=== PATIENT | female | born 1975 | race American Indian/Alaskan Native ===

== ENCOUNTER 2016-07-07 10:33 | Emergency (ER) | payer OTHER ==
[2016-07-07 10:33] VITALS: BMI 30.9
[2016-07-07 10:44] VITALS: BP 113/71; PULSE 72; RESP 18; TEMP 97.5; O2SAT 100
--- NOTE | 2016-07-07 11:24 | C.PDOC ---
History Of Present Illness Pt c/o low back pain. States that she fell forward yesterday, but the pain had already started 2 days ago. Time Seen by Provider: 07/07/16 10:37 Chief Complaint (Nursing): Back Pain History Per: Patient Onset/Duration Of Symptoms: Days (2), Gradual Current Symptoms Are (Timing): Still Present Quality Of Discomfort: "Pain" Severity: Moderate Previous Symptoms: Back Pain Associated Symptoms: None Exacerbating Factor(s): Turning, Movement Additional History Per: Prior Records Past Medical History Reviewed: Historical Data, Nursing Documentation, Vital Signs Vital Signs: Last Vital Signs Temp 97.5 F L 07/07/16 10:36 Pulse 72 07/07/16 10:36 Resp 18 07/07/16 10:36 BP 113/71 07/07/16 10:36 Pulse Ox 100 07/07/16 11:25 - Medical History PMH: Back Problems, Fractures (Rt ankle), Kidney Stones Other Surgeries: Tubal ligation. Ovarian cyst and fibroid removal. - [facility] Procedures CONTR CEREBR ARTERIOGRAM (01/24/04) TETANUS TOXOID ADMINIST (12/06/12) Family History: States: Unknown Family Hx - Social History Hx Tobacco Use: No Hx Alcohol Use: No Hx Substance Use: No - Immunization History Hx Tetanus Toxoid Vaccination: Yes (12/06/2012) Hx Influenza Vaccination: No Hx Pneumococcal Vaccination: No Review Of Systems Except As Marked, All Systems Reviewed And Found Negative. Constitutional: Negative for: Fever, Weakness Cardiovascular: Negative for: Chest Pain Respiratory: Negative for: Shortness of Breath Gastrointestinal: Negative for: Vomiting, Abdominal Pain Genitourinary: Positive for: Vaginal Bleeding (Pt is currently having her regular menstrual period.). Negative for: Dysuria Musculoskeletal: Negative for: Neck Pain, Leg Pain Skin: Negative for: Rash Neurological: Negative for: Weakness, Numbness, Seizures, Altered Mental Status Physical Exam - Physical Exam Appears: Non-toxic, No Acute Distress Skin: Normal Color, Warm, Dry, No Rash Head: Atraumatic, Normacephalic Eye(s): bilateral: PERRL, EOMI Neck: Normal ROM, Supple Cardiovascular: Rhythm Regular Respiratory: Normal Breath Sounds, No Accessory Muscle Use Gastrointestinal/Abdominal: Soft, No Tenderness Back: No CVA Tenderness, Paraspinal Tenderness (lumbar) Extremity: Normal ROM, No Pedal Edema, No Calf Tenderness Neurological/Psych: Oriented x3, Normal Motor, Normal Sensation ED Course And Treatment O2 Sat by Pulse Oximetry: 100 Pulse Ox Interpretation: Normal Reassessment Condition: Improved Disposition Counseled Patient/Family Regarding: Diagnosis, Need For Followup, Rx Given - Disposition Referrals: Wagner Chua MD [Staff Provider] - Disposition: HOME/ ROUTINE Disposition Time: 12:22 Condition: IMPROVED Additional Instructions: Follow up with your doctor. Return to the ER if you develop weakness, numbness, fever, abdominal pain, worsening of symptoms or if you have any other concerns. Prescriptions: Cyclobenzaprine [Cyclobenzaprine HCl] 10 mg PO TID PRN #15 tab PRN Reason: Muscle Spasm Naproxen [Naprosyn] 1 tab PO BID PRN #20 tab PRN Reason: Pain Instructions: Acute Low Back Pain (ED) - Clinical Impression Clinical Impression: Low back pain
== END 2016-07-07 12:31 | disposition home or self-care (01) ==
LOC: C.ER 10:33
DX: M54.5 Low back pain (principal)
CPT/HCPCS: 96372; 99283; J1885

== ENCOUNTER 2016-08-14 11:25 | Emergency (ER) | payer OTHER ==
[2016-08-14 11:25] VITALS: BMI 30.9
[2016-08-14 11:37] VITALS: BP 135/83; PULSE 90; RESP 20; TEMP 98.2; O2SAT 100
[2016-08-14 13:33] LABS: RBC URINE < 1 /hpf (0-3); URINE BACTERIA RARE (<OCC); URINE BILIRUBIN NEGATIVE (NEGATIVE); URINE BLOOD NEGATIVE (NEGATIVE); URINE COLOR Yellow (YELLOW); URINE GLUCOSE (UA) NORMAL (Normal); URINE KETONE NEGATIVE (NEGATIVE); URINE LEUKOCYTE ESTERASE TRACE Leu/uL (Negative); URINE PROTEIN NEGATIVE (NEGATIVE); URINE UROBILINOGEN NORMAL mg/dL (0.2-1.0)
[2016-08-14 13:35] LABS: WBC URINE 6 /hpf (0-5)
--- NOTE | 2016-08-14 14:13 | C.PDOC ---
History Of Present Illness 41 y/o female presents to the ED with complaints of left lower back pain radiating down left leg with associated urinary frequency. Patient was seen status post fall 2 weeks ago in ED, no XRay done at the time. He has been taking naproxen and flexeril without relief from pain. Denies weakness, numbness , incontinence or any other complaints. Time Seen by Provider: 08/14/16 12:43 Chief Complaint (Nursing): Back Pain History Per: Patient History/Exam Limitations: no limitations Onset/Duration Of Symptoms: Days Current Symptoms Are (Timing): Still Present Quality Of Discomfort: "Pain" Severity: Moderate Associated Symptoms: None Recent travel outside of the [place]: No Past Medical History Reviewed: Historical Data, Nursing Documentation, Vital Signs Vital Signs: Last Vital Signs Temp 98.2 F 08/14/16 11:36 Pulse 90 08/14/16 11:36 Resp 20 08/14/16 11:36 BP 135/83 08/14/16 11:36 Pulse Ox 100 08/14/16 19:07 - Medical History PMH: Back Problems, Fractures (Rt ankle), Kidney Stones, Chronic Kidney Disease - [facility] Procedures CONTR CEREBR ARTERIOGRAM (01/24/04) TETANUS TOXOID ADMINIST (12/06/12) Family History: States: Unknown Family Hx - Social History Hx Tobacco Use: No Hx Alcohol Use: No Hx Substance Use: No - Immunization History Hx Tetanus Toxoid Vaccination: Yes (12/06/2012) Hx Influenza Vaccination: Yes Hx Pneumococcal Vaccination: No Review Of Systems Constitutional: Negative for: Fever, Chills Cardiovascular: Negative for: Chest Pain Respiratory: Negative for: Shortness of Breath Gastrointestinal: Negative for: Vomiting, Abdominal Pain, Diarrhea Genitourinary: Positive for: Frequency. Negative for: Dysuria, Incontinence Musculoskeletal: Positive for: Back Pain (radiating down left leg) Skin: Negative for: Rash Neurological: Negative for: Weakness, Numbness Physical Exam - Physical Exam Appears: Non-toxic, No Acute Distress Skin: Warm, Dry, No Rash Head: Atraumatic, Normacephalic Eye(s): bilateral: Normal Inspection Nose: Normal Oral Mucosa: Moist Neck: Normal, Normal ROM, Supple Chest: Symmetrical Cardiovascular: Rhythm Regular, No Murmur Respiratory: Normal Breath Sounds, No Rales, No Rhonchi, No Wheezing Gastrointestinal/Abdominal: Normal Exam, Soft, No Tenderness Back: No Vertebral Tenderness, No Muscle Spasm, Paraspinal Tenderness (lumbar) Extremity: Bilateral: Atraumatic, Hips Non-Tender, Normal Color And Temperature , Normal ROM Neurological/Psych: Oriented x3, Normal Speech, Normal Motor, Normal Sensation ED Course And Treatment O2 Sat by Pulse Oximetry: 100 (room air) Pulse Ox Interpretation: Normal Medical Decision Making Medical Decision Making: Prior records reviewed, patient was seen 07/07/16 for back pain and treated with naproxen, no xrays performed XR lumbar spine negative for fracture or malalignment UA normal. Patient reevaluated and remained well in no acute distress. Discussed results with patient and she is asking for stronger pain meds. Will give new Rx and have patient follow up with her PCP. Work excuse given. Disposition Counseled Patient/Family Regarding: Diagnosis, Need For Followup, Rx Given - Disposition Disposition: HOME/ ROUTINE Disposition Time: 14:11 Condition: GOOD Additional Instructions: Follow up with your primary medical doctor or clinic in 2-5 days for further evaluation. Take medications as prescribed. Return to the emergency department at any time if symptoms persist or worsen. Prescriptions: Methocarbamol [Robaxin] 750 mg PO DAILY #14 tab traMADol [Ultram] 50 mg PO Q8 #15 tab Instructions: Sciatica (ED) Forms: Work Excuse - POA Present On Arrival: None - Clinical Impression Clinical Impression: Sciatica - PA / AUTOMOTIVE ARTIST / Resident Statement MD/DO has reviewed & agrees with the documentation as recorded. - Scribe Statement The provider has reviewed the documentation as recorded by the Alexa Blanchard All medical record entries made by the Alexa were at my direction and personally dictated by me. I have reviewed the chart and agree that the record accurately reflects my personal performance of the history, physical exam, medical decision making, and the department course for this patient. I have also personally directed, reviewed, and agree with the discharge instructions and disposition.
--- NOTE | 2016-08-14 15:08 | RAD ---
PROCEDURE: Radiographs of the Lumbar Spine. HISTORY: pain to low back for 2 weeks, s.p fall COMPARISON: No prior. FINDINGS: BONES: Three views of the lumbar spine were performed. No malalignment is seen. No compression fracture is noted. No lytic process is seen. Pedicles are intact. Mild degenerative facet changes are noted in the lower lumbar spine. Minimal endplate changes are seen at the L2-3 level. No presacral masses are seen. Coccyx is intact. DISC SPACES: No significant disc space narrowing. OTHER FINDINGS: Visualized sacroiliac joints and hips are unremarkable. IMPRESSION: No evidence of fracture or malalignment.
== END 2016-08-14 14:39 | disposition home or self-care (01) ==
LOC: C.ER 11:25
DX: M54.30 Sciatica, unspecified side (principal)

== ENCOUNTER 2017-02-20 03:27 | Observation (INO) | payer OTHER ==
[2017-02-20 03:27] VITALS: BMI 30.9
--- NOTE | 2017-02-20 03:46 | C.PDOC ---
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 Patient states she took Tylenol with no relief and has not been able to sleep. Denies diarrhea or fever. Time Seen by Provider: 02/20/17 03:45 Chief Complaint (Nursing): Abdominal Pain History Per: Patient History/Exam Limitations: no limitations Onset/Duration Of Symptoms: Hrs Current Symptoms Are (Timing): Still Present Severity: Moderate Pain Scale Rating Of: 5 Location Of Pain/Discomfort: Other (Right flank pain) Radiation Of Pain To:: Back, Other (Groin ) Quality Of Discomfort: Sharp (Stabbing) Associated Symptoms: Nausea, Vomiting. denies: Fever, Diarrhea Exacerbating Factors: None Alleviating Factors: None Last Bowel Movement: Yesterday Recent travel outside of the [place]: No Additional History Per: Family Abnormal Vaginal Bleeding: No Past Medical History Vital Signs: Last Vital Signs Temp 97.5 F L 02/20/17 05:44 Pulse 68 02/20/17 05:44 Resp 18 02/20/17 05:44 BP 107/75 02/20/17 05:44 Pulse Ox 99 02/20/17 05:44 - Medical History PMH: Back Problems, Fractures (Rt ankle), Kidney Stones, Chronic Kidney Disease - [facility] Procedures CONTR CEREBR ARTERIOGRAM (01/24/04) TETANUS TOXOID ADMINIST (12/06/12) Family History: States: No Known Family Hx - Social History Hx Tobacco Use: No Hx Alcohol Use: No Hx Substance Use: No - Immunization History Hx Tetanus Toxoid Vaccination: No (12/06/2012) Hx Influenza Vaccination: No Hx Pneumococcal Vaccination: No Review Of Systems Constitutional: Negative for: Fever, Chills Cardiovascular: Negative for: Chest Pain Respiratory: Negative for: Shortness of Breath Gastrointestinal: Positive for: Nausea, Vomiting. Negative for: Diarrhea Genitourinary: Negative for: Dysuria Musculoskeletal: Positive for: Other (Right flank pain ) Skin: Negative for: Rash Neurological: Negative for: Weakness Psych: Negative for: Anxiety Physical Exam - Physical Exam Appears: Non-toxic, Other (Awake and alert) Skin: Warm, Dry Head: Normacephalic Eye(s): bilateral: Normal Inspection Oral Mucosa: Moist Neck: Supple Chest: Symmetrical, No Tenderness Cardiovascular: Rhythm Regular Respiratory: No Rales, No Rhonchi, No Wheezing Gastrointestinal/Abdominal: Soft, Tenderness (RLQ ), No Guarding, No Rebound Back: CVA Tenderness (Right) Extremity: Normal ROM Extremity: Bilateral: Atraumatic Pulses: Left Dorsalis Pedis: Normal, Right Dorsalis Pedis: Normal Neurological/Psych: Oriented x3 Gait: Steady ED Course And Treatment - Laboratory Results Result Diagrams: 02/20/17 04:05 02/20/17 04:05 O2 Sat by Pulse Oximetry: 100 (Room air) Pulse Ox Interpretation: Normal Progress Note: Administered Zofran Inj and Morphine. Ordered blood work and urinalysis. Disposition Discussed With Dr.: Wagner Chua Comment: accepted the pt on his service and took over the care at 5:55 AM Counseled Patient/Family Regarding: Studies Performed, Diagnosis - Disposition Disposition: HOSPITALIZED Disposition Time: 03:45 Condition: FAIR Forms: [facility] ([place]) - Clinical Impression Clinical Impression: Abdominal pain - Scribe Statement The provider has reviewed the documentation as recorded by the Scribe Shirley Estrella All medical record entries made by the Scribe were at my direction and personally dictated by me. I have reviewed the chart and agree that the record accurately reflects my personal performance of the history, physical exam, medical decision making, and the department course for this patient. I have also personally directed, reviewed, and agree with the discharge instructions and disposition. Decision To Admit - Pt Status Changed To: Hospital Disposition Of: Inpatient - Admit Certification Admit to Inpatient:: After my assessment, the patient will require hospitalization for at least two midnights. This is because of the severity of symptoms shown, intensity of services needed, and/or the medical risk in this patient being treated as an outpatient. - InPatient: Physician Admission Certification:: After my assessment, the patient will require hospitalization for at least two midnights. This is because of the severity of symptoms shown, intensity of services needed, and/or the medical risk in this patient being treated as an outpatient. - . Bed Request Type: Regular Admitting Physician: Wagner Chua Patient Diagnosis: Renal colic on right side
[2017-02-20 04:05] LABS: HCG,QUALITATIVE URINE NEGATIVE (NEGATIVE); SQUAMOUS EPITHIAL < 1 /hpf (0-5); URINE BACTERIA OCC (<OCC); URINE BILIRUBIN NEGATIVE (NEGATIVE); URINE BLOOD 3+ (NEGATIVE); URINE CLARITY Clear (Clear); URINE COLOR Straw (YELLOW); URINE GLUCOSE (UA) NORMAL (Normal); URINE LEUKOCYTE ESTERASE NEG Leu/uL (Negative); URINE NITRATE NEGATIVE (NEGATIVE); URINE PROTEIN NEGATIVE (NEGATIVE); URINE UROBILINOGEN NORMAL mg/dL (0.2-1.0)
[2017-02-20 04:10] LABS: BASO % 0.5 % (0.0-2.0); EOS # 0.2 K/uL (0.0-0.7); EOS % 3.5 % (0.0-4.0); HEMOGLOBIN 11.8 g/dL (11.0-16.0); LYMPH # 2.3 K/uL (1.0-4.3); LYMPH % 34.2 % (20.0-40.0); MEAN CELL VOLUME 76.2 fL (81.0-99.0); MEAN CORPUSCULAR HEMOGLOBIN 25.6 pg (27.0-31.0); MEAN CORPUSCULAR HGB CONC 33.6 g/dL (33.0-37.0); MEAN PLATELET VOLUME 8.4 fL (7.2-11.7); MONO # 0.6 K/uL (0.0-0.8); MONO % 9.2 % (0.0-10.0); NEUT # 3.6 K/uL (1.8-7.0); NEUT % 52.6 % (50.0-75.0); RBC 4.6 Mil/uL (3.80-5.20); RED CELL DISTRIBUTION WIDTH 15.9 % (11.5-14.5); WHITE BLOOD COUNT 6.9 K/uL (4.8-10.8)
[2017-02-20 04:44] LABS: ALB/GLOB RATIO 1.1 (1.0-2.1); ALBUMIN 3.7 g/dL (3.5-5.0); ALT/SGPT 26 U/L (9-52); AST/SGOT 20 U/L (14-36); BLOOD UREA NITROGEN 8 mg/dL (7-17); CALCIUM 8.4 mg/dl (8.6-10.4); GFR AFRICAN-AMERICAN > 60; GFR NON-AFRICAN AMERICAN > 60; LIPASE 1373 U/L (23-300)
--- NOTE | 2017-02-20 05:24 | CT ---
EXAM: CT Abdomen and Pelvis Without Intravenous Contrast EXAM DATE/TIME: 02/20/2017 4:07 AM CLINICAL HISTORY: 41 years old, female; Pain; Abdominal pain; Flank; Right lower quadrant (rlq); Patient HX: 02-05-19; Additional info: R flank pain, HX of kidney stones TECHNIQUE: Axial computed tomography images of the abdomen and pelvis without intravenous contrast. All CT scans at this facility use one or more dose reduction techniques, viz.: automated exposure control; ma/kV adjustment per patient size (including targeted exams where dose is matched to indication; i.e. head); or iterative reconstruction technique. Coronal and sagittal reformatted images were created and reviewed. COMPARISON: Prior CT abdomen and pelvis of 2014-02-05 FINDINGS: LOWER THORAX: Patchy groundglass densities in the posterior lung bases bilaterally, most likely representing dependent atelectasis. ABDOMEN: LIVER: No acute abnormality of the liver identified. GALLBLADDER AND BILE DUCTS: No CT evidence of acute cholecystitis. No evidence of significant biliary ductal dilatation. PANCREAS: No CT evidence of acute pancreatitis. SPLEEN: No acute abnormality of the spleen identified. ADRENALS: No acute abnormality of the adrenal glands identified. KIDNEYS AND URETERS: Moderate to severe right hydroureteronephrosis. This appears to be secondary to a 5 mm obstructing stone in the right distal ureter, image 142/series 3. Tiny, nonobstructing left renal stone. STOMACH AND BOWEL: No acute abnormality of the stomach, small bowel or colon identified. No evidence of bowel obstruction. APPENDIX: Appendix is seen, and is within normal limits in appearance. PELVIS: BLADDER: No acute abnormality of the bladder identified. REPRODUCTIVE: Uterus again appears mildly and diffusely enlarged. This could be secondary to uterine fibroids. No evidence of large adnexal masses. ABDOMEN and PELVIS: INTRAPERITONEAL SPACE: No evidence of free intraperitoneal air or fluid. BONES/JOINTS: No acute fractures or other acute bony abnormality noted. SOFT TISSUES: Small umbilical hernia, containing only fat. VASCULATURE: No evidence of abdominal aortic aneurysm. No evidence of periaortic hemorrhage. LYMPH NODES: No evidence of diffuse lymphadenopathy. IMPRESSION: - 5 mm obstructing stone in the right distal ureter, causing moderate to severe right hydroureteronephrosis. - See above for remaining findings.
[2017-02-20] MEDS ORDERED: Sodium Chloride 0.9% 1,000 ML ONE (06:08)
[2017-02-20] MEDS: Sodium Chloride 0.9% 1,000 ML IV SCH ×2 (06:24→13:51)
[2017-02-20 06:50] VITALS: RESP 20
[2017-02-20 09:20] LABS: AMYLASE 190 U/L (30-110)
--- NOTE | 2017-02-20 14:25 | CP.PCM.CON ---
<Sahara Gupta - Last Filed: 02/20/17 14:35> History of Present Illness - History of Present Illness History of Present Illness: GI Consult Note for Dr. Myles Reason for consult: elevated lipase 41 year old female PMHx nephrolithiasis presents with RLQ pain radiating to her R flank for 2 days. Patient reports pain started on Sunday 02/18 but she associated it with her starting her menses that day. She states it began as a cramping pain which worsened to a sharp stabbing intermittent pain which was 10/ 10 in intensity. Patient's pain started at the RLQ and radiated to her right flank. She stated she has had nephrolithaisis in the past on the left side 3 years ago. Patient stated she tried 2 pills of tylenol 250mg the night prior to admission but noticed her pain becoming worse and she decided to come in. Patient also admitted to 2 episodes of nonbloody nonbilious emesis secondary to the pain. She denied any fever, chills, headache, dizziness, chest pain, palpitations, SOB, cough, pain/swelling in her legs bilaterally. PMHx: nephrolithiasis PSurgHx: tubal ligation, fibroid removal, R ankle PProcedure: endoscopy [address] Myles, never had a colonoscopy Fam Hx: mother DM and HTN; no hx of CVA, CAD, or cancer in the family Social Hx: denies EtOH, tobacco abuse, drug use. 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 Allergies: NKDA Review of Systems - Review of Systems All systems: reviewed and no additional remarkable complaints except - Constitutional Constitutional: As Per HPI. absent: Chills, Fever - EENT Ears: As Per HPI. absent: Dizziness - Cardiovascular Cardiovascular: As Per HPI. absent: Chest Pain, Dyspnea, Edema - Respiratory Respiratory: As Per HPI. absent: Cough, Dyspnea, Dyspnea on Exertion - Gastrointestinal Gastrointestinal: As Per HPI, Abdominal Pain (RLQ and R flank), Nausea, Vomiting (2 times nonbloody nonbilious). absent: Constipation, Diarrhea, Hematemesis, Hematochezia - Genitourinary Genitourinary: As Per HPI, Flank Pain (right flank), Hx Renal/Bladder Calculi. absent: Pyuria - Musculoskeletal Musculoskeletal: As Per HPI. absent: Numbness, Tingling - Integumentary Integumentary: As Per HPI. absent: Dry Skin - Neurological Neurological: As Per HPI. absent: Dizziness, Headaches - Endocrine Endocrine: As Per HPI. absent: Polydipsia, Polyphagia, Polyuria - Hematologic/Lymphatic Hematologic: As Per HPI. absent: Easy Bleeding, Easy Bruising Past Patient History - Past Medical History & Family History Past Medical History?: Yes - Past Social History Smoking Status: Never Smoked - CARDIAC Hx Cardiac Disorders: No - PULMONARY Hx Respiratory Disorders: No - NEUROLOGICAL Hx Neurological Disorder: No - HEENT Hx HEENT Problems: No - RENAL Hx Chronic Kidney Disease: Yes Hx Kidney Stones: Yes - ENDOCRINE/METABOLIC Hx Endocrine Disorders: No - HEMATOLOGICAL/ONCOLOGICAL Hx Blood Disorders: No - INTEGUMENTARY Hx Dermatological Problems: No - MUSCULOSKELETAL/RHEUMATOLOGICAL Hx Falls: No - GASTROINTESTINAL Hx Gastrointestinal Disorders: Yes - GENITOURINARY/GYNECOLOGICAL Hx Urinary Tract Infection: Yes - PSYCHIATRIC Hx Substance Use: No - SURGICAL HISTORY Hx Surgeries: Yes Hx Orthopedic Surgery: Yes (RT ankle) Hx Tubal Ligation: Yes Other/Comment: Ovarian Cyst, Fibroid Removal - ANESTHESIA Hx Anesthesia: Yes Hx Anesthesia Reactions: No Hx Malignant Hyperthermia: No Meds Allergies/Adverse Reactions: Allergies Allergy/AdvReac Type Severity Reaction Status Date / Time No Known Allergies Allergy Verified 02/20/17 03:45 - Medications Medications: Current Medications Sodium Chloride (Sodium Chloride 0.9%) 1,000 mls @ 150 mls/hr IV .Q6H40M [facility] Last Admin: 02/20/17 13:51 Dose: 150 mls/hr Ketorolac Tromethamine (Toradol) 30 mg IVP Q6 PRN PRN Reason: pain Physical Exam - Constitutional Appears: Non-toxic, No Acute Distress - Head Exam Head Exam: ATRAUMATIC, NORMAL INSPECTION, NORMOCEPHALIC - Eye Exam Eye Exam: EOMI, Normal appearance. absent: Conjunctival injection, Scleral icterus - ENT Exam ENT Exam: Mucous Membranes Moist - Neck Exam Neck exam: Positive for: Full Rom, Normal Inspection - Respiratory Exam Respiratory Exam: NORMAL BREATHING PATTERN. absent: Accessory Muscle Use, Respiratory Distress - Cardiovascular Exam Cardiovascular Exam: +S1, +S2 - GI/Abdominal Exam GI & Abdominal Exam: Soft. absent: Distended, Firm, Guarding, Rigid, Tenderness - Extremities Exam Extremities exam: Positive for: normal inspection, pedal pulses present. Negative for: pedal edema - Back Exam Back exam: CVA tenderness (R) - Neurological Exam Neurological exam: Alert, CN II-XII Intact, Normal Gait, Oriented x3 - Psychiatric Exam Psychiatric exam: Normal Affect, Normal Mood - Skin Skin Exam: Dry, Intact, Normal Color, Warm Results - Vital Signs Recent Vital Signs: Last Vital Signs Temp 98 F 02/20/17 06:49 Pulse 77 02/20/17 06:49 Resp 20 02/20/17 06:49 BP 111/76 02/20/17 06:49 Pulse Ox 95 02/20/17 06:49 - Labs Result Diagrams: 02/20/17 04:05 02/20/17 04:05 Labs: Laboratory Results - last 24 hr 02/20/17 02/20/17 02/20/17 03:56 04:05 04:05 WBC 6.9 D RBC 4.60 Hgb 11.8 Hct 35.0 MCV 76.2 L MCH 25.6 L MCHC 33.6 RDW 15.9 H Plt Count 304 D MPV 8.4 Neut % (Auto) 52.6 Lymph % (Auto) 34.2 [place] % (Auto) 9.2 Eos % (Auto) 3.5 Baso % (Auto) 0.5 Neut # 3.6 Lymph # 2.3 [place] # 0.6 Eos # 0.2 Baso # 0.0 Sodium 135 Potassium 3.6 Chloride 101 Carbon Dioxide 27 Anion Gap 11 BUN 8 Creatinine 0.6 L Est GFR ( Amer) > 60 Est GFR (Non-Af Amer) > 60 Random Glucose 106 H Calcium 8.4 L Total Bilirubin 0.7 AST 20 ALT 26 Alkaline Phosphatase 78 Total Protein 7.2 Albumin 3.7 Globulin 3.5 Albumin/Globulin Ratio 1.1 Amylase 190 H D Lipase 1373 H Urine Color Straw Urine Clarity Clear Urine pH 6.0 Ur Specific [place] 1.010 Urine Protein Negative Urine Glucose (UA) Normal Urine Ketones Negative Urine Blood 3+ H Urine Nitrate Negative Urine Bilirubin Negative Urine Urobilinogen Normal Ur Leukocyte Esterase Neg Urine WBC (Auto) 3 Urine RBC (Auto) 97 H Ur Squamous Epith Cells < 1 Urine Bacteria Occ H Urine HCG, Qual Negative Assessment & Plan - Assessment and Plan (Free Text) Assessment: 41 year old female PMHx nephrolithiasis presents with RLQ pain for 2 days. GI consulted for elevation of lipase. Plan: - CT abd/pelvis: no indication of acute pancreatitis ; 5mm obstructing stone in R distal ureter causing moderate to severe R hydroureteronephrosis - continue IV hydration - Lipase 1373 - Amylase 190 - elevated levels likely related to nephrolithiasis and hydroureteronephrosis. Patient to [facility]. - recommend outpatient follow up at Dr. Myles's office upon discharge Discussed with Dr. Shar Gupta PGY2 <Bernardo Myles - Last Filed: 02/20/17 17:59> Meds - Medications Medications: Current Medications Sodium Chloride (Sodium Chloride 0.9%) 1,000 mls @ 150 mls/hr IV .Q6H40M [facility] Last Admin: 02/20/17 13:51 Dose: 150 mls/hr Ketorolac Tromethamine (Toradol) 30 mg IVP Q6 PRN PRN Reason: pain Results - Vital Signs Recent Vital Signs: Last Vital Signs Temp 98.5 F 02/20/17 15:15 Pulse 71 02/20/17 15:15 Resp 20 02/20/17 15:15 BP 120/73 02/20/17 15:15 Pulse Ox 99 02/20/17 15:15 - Labs Result Diagrams: 02/20/17 04:05 02/20/17 04:05 Labs: Laboratory Results - last 24 hr 02/20/17 02/20/17 02/20/17 03:56 04:05 04:05 WBC 6.9 D RBC 4.60 Hgb 11.8 Hct 35.0 MCV 76.2 L MCH 25.6 L MCHC 33.6 RDW 15.9 H Plt Count 304 D MPV 8.4 Neut % (Auto) 52.6 Lymph % (Auto) 34.2 [place] % (Auto) 9.2 Eos % (Auto) 3.5 Baso % (Auto) 0.5 Neut # 3.6 Lymph # 2.3 [place] # 0.6 Eos # 0.2 Baso # 0.0 Sodium 135 Potassium 3.6 Chloride 101 Carbon Dioxide 27 Anion Gap 11 BUN 8 Creatinine 0.6 L Est GFR ( Amer) > 60 Est GFR (Non-Af Amer) > 60 Random Glucose 106 H Calcium 8.4 L Total Bilirubin 0.7 AST 20 ALT 26 Alkaline Phosphatase 78 Total Protein 7.2 Albumin 3.7 Globulin 3.5 Albumin/Globulin Ratio 1.1 Amylase 190 H D Lipase 1373 H Urine Color Straw Urine Clarity Clear Urine pH 6.0 Ur Specific [place] 1.010 Urine Protein Negative Urine Glucose (UA) Normal Urine Ketones Negative Urine Blood 3+ H Urine Nitrate Negative Urine Bilirubin Negative Urine Urobilinogen Normal Ur Leukocyte Esterase Neg Urine WBC (Auto) 3 Urine RBC (Auto) 97 H Ur Squamous Epith Cells < 1 Urine Bacteria Occ H Urine HCG, Qual Negative Attending/Attestation - Attestation I have personally seen and examined this patient.: Yes I have fully participated in the care of the patient.: Yes I have reviewed all pertinent clinical information: Yes Notes (Text): 02/20/17 17:52 I have seen and examined patient with GI fellow and medical technologist chief. Agree with above documentation with the following additions. In brief, this is a 41 year old female with history of nephrolithiasis who presents to hospital with complaint of sudden onset right sided abdominal pain radiating to back/flank for the past 2 days. Prior to this she was in usual state of health. She describes sharp stabbing 10/10 pain that was worse with movement and was associated with 2 episodes of non-bloody emesis. She had a similar pain episode a few years ago related to left sided nephrolithiasis. She otherwise denies diarrhea, fever/chills, weight loss, rectal bleeding, change in medication, or change in bowel habits. She had an EGD earlier this year which showed gastritis, no prior colonoscopy. Additional physical examination: Abdomen: no palpable hepato/splenomegaly Abdominal/flank pain Nephrolithiasis, right sided obstructive uropathy with hydronephrosis Elevated lipase/amylase CT imaging reviewed by me showing no gross pancreatic abnormalities - Diet as tolerated - Continue with IVF hydration, pain control - Follow up urology recommendations - No clinical concern for pancreatitis in this situation. Elevation of amylase/ lipase is non-specific and in this scenario likely related to obstructive uropathy with hydronephrosis. - Suggest additional outpatient follow up after resolution of acute urologic issue, will continue to monitor patient clinical course
[2017-02-20 16:15] VITALS: BP 120/73; PULSE 71; TEMP 98.5; O2SAT 99
--- NOTE | 2017-02-21 00:42 | CP.PCM.HP ---
History of Present Illness - History of Present Illness History of Present Illness: CC: biltaeral flank pain HPI: 41 year old AA female PMHx nephrolithiasis presents with RLQ pain radiating to her R flank for 2 days. Patient reports pain started on Saturday but she associated it with her starting her menses that day. She states it began as a cramping pain which worsened to a sharp stabbing intermittent pain which was 10/10 in intensity. Patient's pain started at the RLQ and radiated to her right flank. She stated she has had nephrolithaisis in the past on the left side 3 years ago. Patient stated she tried 2 pills of tylenol 250mg the night prior to admission but noticed her pain becoming worse and she decided to come in. Patient also admitted to 2 episodes of nonbloody nonbilious emesis secondary to the pain. She denied any fever, chills, headache, dizziness, chest pain, palpitations, SOB, cough, pain/swelling in her legs bilaterally. Present on Admission - Present on Admission Any Indicators Present on Admission: Yes Review of Systems - Review of Systems Systems not reviewed;Unavailable: Acuity of Condition - Constitutional Constitutional: absent: As Per HPI, Anorexia, Chills, Daytime Sleepiness, Excessive Sweating, Fatigue, Fever, Frequent Falls, Headache, Increased Appetite , Lethargy, Malaise, Night Sweats, Snoring, Sleep Apnea, Weight Gain, Weight Loss, Weakness, Other - EENT Eyes: absent: As Per HPI, Blind Spots, Blurred Vision, Change in Vision, Decreased Night Vision, Diplopia, Discharge, Dry Eye, Exophthalmos, Floaters, Irritation, Itchy Eyes, Loss of Peripheral Vision, Pain, Photophobia, Requires Corrective Lenses, Sees Flashes, Spots in Vision, Tunnel Vision, Other Visual Disturbances, Loss of Vision, Other Nose/Mouth/Throat: absent: As Per HPI, Epistaxis, Nasal Congestion, Nasal Discharge, Nasal Obstruction, Nasal Trauma, Nose Pain, Post Nasal Drip, Sinus Pain, Sinus Pressure, Bleeding Gums, Change in Voice, Dental Pain, Dry Mouth, Dysphagia, Halitosis, Hoarsness, Lip Swelling, Mouth Lesions, Mouth Pain, Odynophagia, Sore Throat, Throat Swelling, Tongue Swelling, Facial Pain, Neck Pain, Neck Mass, Other - Breasts Breasts: absent: As Per HPI, Change in Shape, Mass, Pain, Nipple Discharge, Nipple Inversion, Skin Changes, Swelling, Other - Cardiovascular Cardiovascular: absent: As Per HPI, Acrocyanosis, Chest Pain, Chest Pain at Rest , Chest Pain with Activity, Claudication, Diaphoresis, Dyspnea, Dyspnea on Exertion, Edema, Irregular Heart Rhythm, Pain Radiating to Arm/Neck/Jaw, Leg Edema, Leg Ulcers, Lightheadedness, Orthopnea, Palpitations, Paroxysmal Nocturnal Dyspnea, Pedal Edema, Radiating Pain, Rapid Heart Rate, Slow Heart Rate, Syncope, Other - Gastrointestinal Gastrointestinal: absent: As Per HPI, Abdominal Pain, Belching, Bloating, Change in Bowel Habits, Change in Stool Character, Coffee Ground Emesis, Constipation, Cramping, Diarrhea, Dyspepsia, Dysphagia, Early Satiety, Excessive Flatus, Fecal Incontinence, Heartburn, Hematemesis, Hematochezia, Loose Stools, Melena, Nausea, Odynophagia, Temesmus, Vomiting, Other - Genitourinary Genitourinary: Flank Pain Past Patient History - Past Medical History & Family History Past Medical History?: Yes - Past Social History Smoking Status: Never Smoked - CARDIAC Hx Cardiac Disorders: No - PULMONARY Hx Respiratory Disorders: No - NEUROLOGICAL Hx Neurological Disorder: No - HEENT Hx HEENT Problems: No - RENAL Hx Chronic Kidney Disease: Yes Hx Kidney Stones: Yes - ENDOCRINE/METABOLIC Hx Endocrine Disorders: No - HEMATOLOGICAL/ONCOLOGICAL Hx Blood Disorders: No - INTEGUMENTARY Hx Dermatological Problems: No - MUSCULOSKELETAL/RHEUMATOLOGICAL Hx Falls: No - GASTROINTESTINAL Hx Gastrointestinal Disorders: Yes - GENITOURINARY/GYNECOLOGICAL Hx Urinary Tract Infection: Yes - PSYCHIATRIC Hx Substance Use: No - SURGICAL HISTORY Hx Surgeries: Yes Hx Orthopedic Surgery: Yes (RT ankle) Hx Tubal Ligation: Yes Other/Comment: Ovarian Cyst, Fibroid Removal - ANESTHESIA Hx Anesthesia: Yes Hx Anesthesia Reactions: No Hx Malignant Hyperthermia: No Meds Allergies/Adverse Reactions: Allergies Allergy/AdvReac Type Severity Reaction Status Date / Time No Known Allergies Allergy Verified 02/20/17 03:45 Physical Exam - Constitutional Appears: No Acute Distress - Head Exam Head Exam: ATRAUMATIC, NORMAL INSPECTION, NORMOCEPHALIC - Eye Exam Eye Exam: EOMI, Normal appearance, PERRL Pupil Exam: NORMAL ACCOMODATION, PERRL - ENT Exam ENT Exam: Mucous Membranes Moist, Normal Exam - Neck Exam Neck exam: Positive for: Normal Inspection - Respiratory Exam Respiratory Exam: Clear to Auscultation Bilateral, NORMAL BREATHING PATTERN - Cardiovascular Exam Cardiovascular Exam: REGULAR RHYTHM - GI/Abdominal Exam GI & Abdominal Exam: Normal Bowel Sounds, Soft. absent: Tenderness - Rectal Exam Rectal Exam: Deferred Results - Vital Signs Recent Vital Signs: Last Vital Signs Temp 98.5 F 02/20/17 15:15 Pulse 71 02/20/17 15:15 Resp 20 02/20/17 15:15 BP 120/73 02/20/17 15:15 Pulse Ox 99 02/20/17 15:15 - Labs Result Diagrams: 02/20/17 04:05 02/20/17 04:05 Labs: Laboratory Results - last 24 hr 02/20/17 02/20/17 02/20/17 03:56 04:05 04:05 WBC 6.9 D RBC 4.60 Hgb 11.8 Hct 35.0 MCV 76.2 L MCH 25.6 L MCHC 33.6 RDW 15.9 H Plt Count 304 D MPV 8.4 Neut % (Auto) 52.6 Lymph % (Auto) 34.2 [place] % (Auto) 9.2 Eos % (Auto) 3.5 Baso % (Auto) 0.5 Neut # 3.6 Lymph # 2.3 [place] # 0.6 Eos # 0.2 Baso # 0.0 Sodium 135 Potassium 3.6 Chloride 101 Carbon Dioxide 27 Anion Gap 11 BUN 8 Creatinine 0.6 L Est GFR ( Amer) > 60 Est GFR (Non-Af Amer) > 60 Random Glucose 106 H Calcium 8.4 L Total Bilirubin 0.7 AST 20 ALT 26 Alkaline Phosphatase 78 Total Protein 7.2 Albumin 3.7 Globulin 3.5 Albumin/Globulin Ratio 1.1 Amylase 190 H D Lipase 1373 H Urine Color Straw Urine Clarity Clear Urine pH 6.0 Ur Specific [place] 1.010 Urine Protein Negative Urine Glucose (UA) Normal Urine Ketones Negative Urine Blood 3+ H Urine Nitrate Negative Urine Bilirubin Negative Urine Urobilinogen Normal Ur Leukocyte Esterase Neg Urine WBC (Auto) 3 Urine RBC (Auto) 97 H Ur Squamous Epith Cells < 1 Urine Bacteria Occ H Urine HCG, Qual Negative Assessment & Plan (1) Flank pain Assessment and Plan: Pt was admitted but her pain is now better and she have an appoitmnet with urologist juliane so she is for discharge home Status: Acute
== END 2017-02-20 18:08 | disposition home or self-care (01) ==
LOC: C.ER 03:27 → INTOOBSV 05:56 → C.9E 05:56 → C.6T 06:13
PROVIDERS: ADMIT Internal Medicine; ATTEND Internal Medicine
DX: N13.2 Hydronephrosis with renal and ureteral calculous obstruction (principal); K29.70 Gastritis, unspecified, without bleeding; N18.9 Chronic kidney disease, unspecified; R74.8 Abnormal levels of other serum enzymes; Z82.49 Family history of ischemic heart disease and other diseases of the circulatory system; Z83.3 Family history of diabetes mellitus; Z87.440 Personal history of urinary (tract) infections; Z87.442 Personal history of urinary calculi; Z98.51 Tubal ligation status
CPT/HCPCS: 74176; 80053; 81001; 82150; 83690; 84703; 85025; 96374; 96375; 99285; G0378; J1885; J2270; J2405; J7040

== ENCOUNTER 2017-02-26 08:35 | Inpatient (IN) | payer OTHER ==
[2017-02-26 08:36] VITALS: BMI 30.9
[2017-02-26] MEDS ORDERED: Sodium Chloride 0.9% 1,000 ML IV ONE (09:04)
--- NOTE | 2017-02-26 09:11 | C.PDOC ---
History Of Present Illness 41 y/o female with history of Kidney stones presents to ED sent by urologist for evaluation on right flank pain worse for "few days". Patient has recent lithotripsy by Dr. Dominguez and patient states she has not passed stones. Patient denies fever, chills, nausea, vomiting or any other complaints at this time. Time Seen by Provider: 02/26/17 08:55 Chief Complaint (Nursing): Female Genitourinary History Per: Patient History/Exam Limitations: no limitations Onset/Duration Of Symptoms: Days Current Symptoms Are (Timing): Still Present Past Medical History Reviewed: Historical Data, Nursing Documentation, Vital Signs Vital Signs: Last Vital Signs Temp 98.6 F 02/26/17 08:55 Pulse 95 H 02/26/17 08:55 Resp 18 02/26/17 08:55 BP 108/79 02/26/17 08:55 Pulse Ox 99 02/26/17 09:18 - Medical History PMH: Back Problems, Kidney Stones, Chronic Kidney Disease Surgical History: No Surg Hx - [facility] CONTR CEREBR ARTERIOGRAM (01/24/04) TETANUS TOXOID ADMINIST (12/06/12) Family History: States: No Known Family Hx - Social History Hx Tobacco Use: No Hx Alcohol Use: No Hx Substance Use: No - Immunization History Hx Tetanus Toxoid Vaccination: Yes (12/06/2012) Hx Influenza Vaccination: Yes Hx Pneumococcal Vaccination: No Review Of Systems Constitutional: Negative for: Fever, Chills Gastrointestinal: Positive for: Other (Right flank pain). Negative for: Nausea , Vomiting Skin: Negative for: Rash Neurological: Negative for: Weakness, Numbness Physical Exam - Physical Exam Appears: Non-toxic, No Acute Distress Skin: Normal Color, Warm, Dry, No Rash Head: Atraumatic, Normacephalic Eye(s): bilateral: Normal Inspection Oral Mucosa: Moist Neck: Supple Cardiovascular: Rhythm Regular Respiratory: Normal Breath Sounds, No Rales, No Rhonchi, No Wheezing Gastrointestinal/Abdominal: Soft, Tenderness (Right flank ), No Guarding, No Rebound Back: No CVA Tenderness Extremity: Normal ROM, Capillary Refill (<2 seconds) Neurological/Psych: Oriented x3 ED Course And Treatment - Laboratory Results Result Diagrams: 02/26/17 09:18 02/26/17 09:18 O2 Sat by Pulse Oximetry: 99 (RA) Pulse Ox Interpretation: Normal Medical Decision Making Medical Decision Making: Discussed with Dr Dominguez, requested Dry CT for patient discussed with dr dominguez, will admit for or today. dr christine mandel. Disposition - Disposition Disposition: HOSPITALIZED Disposition Time: 10:49 Condition: STABLE Forms: [facility] (Romanian) - Clinical Impression Clinical Impression: Kidney stone - Scribe Statement The provider has reviewed the documentation as recorded by the Scribe Radha Dugan All medical record entries made by the Scribe were at my direction and personally dictated by me. I have reviewed the chart and agree that the record accurately reflects my personal performance of the history, physical exam, medical decision making, and the department course for this patient. I have also personally directed, reviewed, and agree with the discharge instructions and disposition. Decision To Admit - Pt Status Changed To: Hospital Disposition Of: Inpatient - Admit Certification Admit to Inpatient:: After my assessment, the patient will require hospitalization for at least two midnights. This is because of the severity of symptoms shown, intensity of services needed, and/or the medical risk in this patient being treated as an outpatient. - InPatient: Physician Admission Certification:: needs or for kidney stone - . Bed Request Type: Regular Admitting Physician: Wagner Chua Patient Diagnosis: Kidney stone
[2017-02-26] MEDS ORDERED: Morphine 4 MG/ML VIAL ONE (09:22)
[2017-02-26] MEDS ORDERED: Sodium Chloride 0.9% 1,000 ML ONE (09:22)
[2017-02-26 09:26] LABS: BASO # 0.1 K/uL (0.0-0.2); BASO % 0.8 % (0.0-2.0); EOS # 0.1 K/uL (0.0-0.7); EOS % 2.2 % (0.0-4.0); HEMOGLOBIN 12.5 g/dL (11.0-16.0); LYMPH # 2.8 K/uL (1.0-4.3); LYMPH % 44.2 % (20.0-40.0); MEAN CELL VOLUME 75.7 fL (81.0-99.0); MEAN CORPUSCULAR HEMOGLOBIN 25.7 pg (27.0-31.0); MONO # 0.5 K/uL (0.0-0.8); MONO % 7.4 % (0.0-10.0); NEUT # 2.9 K/uL (1.8-7.0); NEUT % 45.4 % (50.0-75.0); RBC 4.84 Mil/uL (3.80-5.20); RED CELL DISTRIBUTION WIDTH 15.9 % (11.5-14.5); WHITE BLOOD COUNT 6.3 K/uL (4.8-10.8)
[2017-02-26 09:39] LABS: SQUAMOUS EPITHIAL 1 /hpf (0-5); URINE BACTERIA RARE (<OCC); URINE BILIRUBIN NEGATIVE (NEGATIVE); URINE BLOOD NEGATIVE (NEGATIVE); URINE CLARITY Clear (Clear); URINE COLOR Amber (YELLOW); URINE GLUCOSE (UA) NORMAL (Normal); URINE LEUKOCYTE ESTERASE TRACE Leu/uL (Negative); URINE NITRATE NEGATIVE (NEGATIVE); URINE PROTEIN NEGATIVE (NEGATIVE); URINE UROBILINOGEN NORMAL mg/dL (0.2-1.0)
[2017-02-26 09:44] LABS: ALB/GLOB RATIO 1.1 (1.0-2.1); ALBUMIN 4.1 g/dL (3.5-5.0); ALT/SGPT 30 U/L (9-52); AST/SGOT 20 U/L (14-36); BLOOD UREA NITROGEN 13 mg/dL (7-17); CALCIUM 8.6 mg/dl (8.6-10.4); GFR AFRICAN-AMERICAN > 60; GFR NON-AFRICAN AMERICAN > 60; LIPASE 98 U/L (23-300)
--- NOTE | 2017-02-26 10:40 | CT ---
PROCEDURE: CT Abdomen and Pelvis without Oral or IV contrast. HISTORY: right sided pain h/o of kidney stone COMPARISON: CT abdomen and pelvis without contrast performed 02/20/17 TECHNIQUE: Contiguous axial images of the abdomen and pelvis. No oral or IV contrast administered. Coronal and Sagittal reformats generated and reviewed. Radiation dose: Total exam DLP = 1251.64 MGy-cm. This CT exam was performed using one or more of the following dose reduction techniques: Automated exposure control, adjustment of the mA and/or kV according to patient size, and/or use of iterative reconstruction technique. FINDINGS: There is limited evaluation of the solid organs without the administration of IV contrast. LOWER THORAX: No visible consolidation, pleural effusion, or pneumothorax. LIVER: Unremarkable unenhanced appearance. GALLBLADDER AND BILE DUCTS: Unremarkable unenhanced appearance. PANCREAS: Unremarkable unenhanced appearance. SPLEEN: 15 mm probable splenule. Otherwise unremarkable unenhanced appearance. ADRENALS: Unremarkable unenhanced appearance. KIDNEYS AND URETERS: 5 mm calcification near the right UVJ likely previously described calculus. Punctate nonobstructing left renal calculi. Interval improvement in previously described right-sided hydronephrosis. No left-sided hydronephrosis. BLADDER: See above. REPRODUCTIVE: Heterogeneous lobulated uterus containing calcifications likely related to fibroids. APPENDIX: The appendix appears within normal limits of caliber. No secondary signs of acute appendicitis. BOWEL: The stomach is nondistended. Lack of oral contrast limits evaluation for bowel pathology. The bowel loops appear within normal limits of caliber without evidence of intestinal obstruction. Moderate constipation. PERITONEUM: No significant free fluid. No definite free air. LYMPH NODES: No bulky lymphadenopathy identified. VASCULATURE: No aortic aneurysm. BONES: No acute osseous abnormality is detected. OTHER FINDINGS: Small fat containing umbilical hernia. IMPRESSION: 5 mm calcification near the right UVJ likely previously described calculus. Punctate nonobstructing left renal calculi. Interval improvement in previously described right-sided hydronephrosis. No left-sided hydronephrosis. Heterogeneous lobulated uterus containing calcifications likely related to fibroids. Moderate constipation. Additional findings as above.
[2017-02-26] MEDS: Sodium Chloride 0.9% 1,000 ML IV SCH ×2 (12:40→21:41)
[2017-02-26] MEDS: Ciprofloxacin 400mg/200ml D5W 400 MG/200 ML BAG IVPB SCH (12:41)
[2017-02-26] MEDS ORDERED: Propofol 10 mg/ml Inj (20 ML) ONE ×2 (15:24→15:43)
[2017-02-26] MEDS ORDERED: Midazolam 2 MG/2 ML VIAL ONE (15:24)
[2017-02-26] MEDS ORDERED: Lactated Ringer's 1,000 ML IV ONE (15:30)
[2017-02-26] MEDS ORDERED: HYDROmorphone 0.5 mg/0.5 ml ISec IVP PRN (15:31)
[2017-02-26] MEDS ORDERED: Iohexol 240 (50 ml) ONE (15:32)
[2017-02-26] MEDS ORDERED: Magnesium Hydroxide Susp 30 ml UD PO ONE ×2 (15:45→18:00)
[2017-02-26 17:55] VITALS: RESP 20
[2017-02-26] MEDS: Oxycodone/Acetaminophen 5/325 mg Tab PO PRN (17:55)
--- NOTE | 2017-02-26 21:32 | CP.PCM.HP ---
History of Present Illness - History of Present Illness History of Present Illness: CC: Flank pain HPI: 41 y/o female with history of Kidney stones with h/o lithotripsy 1 week ago and she was told to look after a stone in urine,she was advised to strain all the urine, she didnot noticed any stone passed, but since yesterday she developed acute flank pain presents to ED sent by urologist for evaluation on right flank pain worse for "few days". Patient has recent lithotripsy by Dr. Dominguez and patient states she has not passed stones. Patient denies fever, chills, nausea, vomiting or any other complaints at this timeno dysuria, pyuria. Present on Admission - Present on Admission Any Indicators Present on Admission: Yes Review of Systems - Review of Systems Systems not reviewed;Unavailable: Acuity of Condition - Constitutional Constitutional: Fatigue - EENT Eyes: absent: As Per HPI, Blind Spots, Blurred Vision, Change in Vision, Decreased Night Vision, Diplopia, Discharge, Dry Eye, Exophthalmos, Floaters, Irritation, Itchy Eyes, Loss of Peripheral Vision, Pain, Photophobia, Requires Corrective Lenses, Sees Flashes, Spots in Vision, Tunnel Vision, Other Visual Disturbances, Loss of Vision, Other Nose/Mouth/Throat: absent: As Per HPI, Epistaxis, Nasal Congestion, Nasal Discharge, Nasal Obstruction, Nasal Trauma, Nose Pain, Post Nasal Drip, Sinus Pain, Sinus Pressure, Bleeding Gums, Change in Voice, Dental Pain, Dry Mouth, Dysphagia, Halitosis, Hoarsness, Lip Swelling, Mouth Lesions, Mouth Pain, Odynophagia, Sore Throat, Throat Swelling, Tongue Swelling, Facial Pain, Neck Pain, Neck Mass, Other - Cardiovascular Cardiovascular: absent: As Per HPI, Acrocyanosis, Chest Pain, Chest Pain at Rest , Chest Pain with Activity, Claudication, Diaphoresis, Dyspnea, Dyspnea on Exertion, Edema, Irregular Heart Rhythm, Pain Radiating to Arm/Neck/Jaw, Leg Edema, Leg Ulcers, Lightheadedness, Orthopnea, Palpitations, Paroxysmal Nocturnal Dyspnea, Pedal Edema, Radiating Pain, Rapid Heart Rate, Slow Heart Rate, Syncope, Other - Respiratory Respiratory: absent: As Per HPI, Cough, Dyspnea, Hemoptysis, Dyspnea on Exertion , Wheezing, Snoring, Stridor, Pain on Inspiration, Chest Congestion, Excessive Mucous Production, Change in Mucous Color, Pain with Coughing, Other - Gastrointestinal Gastrointestinal: absent: As Per HPI, Abdominal Pain, Belching, Bloating, Change in Bowel Habits, Change in Stool Character, Coffee Ground Emesis, Constipation, Cramping, Diarrhea, Dyspepsia, Dysphagia, Early Satiety, Excessive Flatus, Fecal Incontinence, Heartburn, Hematemesis, Hematochezia, Loose Stools, Melena, Nausea, Odynophagia, Temesmus, Vomiting, Other - Genitourinary Genitourinary: Flank Pain, Hx Renal/Bladder Calculi Past Patient History - Past Medical History & Family History Past Medical History?: Yes - Past Social History Smoking Status: Never Smoked - CARDIAC Hx Atrial Fibrillation: No Hx Cardia Arrhythmia: No Hx Congestive Heart Failure: No Hx Hypercholesterolemia: No Hx Hypertension: No Hx Mitral Valve Prolapse: No Hx Pacemaker: No Hx Peripheral Edema: No - PULMONARY Hx Asthma: No Hx Bronchitis: No Hx Chronic Obstructive Pulmonary Disease (COPD): No Hx Emphysema: No Hx Pneumonia: No Hx Pulmonary Embolism: No Hx Sleep Apnea: No - NEUROLOGICAL Hx Alzheimer's Disease: No Hx Dementia: No Hx Migraine: No Hx Multiple Sclerosis: No Hx Parkinson's Disease: No Hx Seizures: No Hx Transient Ischemic Attacks (TIA): No - HEENT Hx HEENT Problems: No - RENAL Hx Chronic Kidney Disease: Yes Hx Kidney Stones: Yes (had lithotripsy on 02/21/17) - ENDOCRINE/METABOLIC Hx Hyperthyroidism: No Hx Hypothyroidism: No - HEMATOLOGICAL/ONCOLOGICAL Hx Anemia: No Hx Human Immunodeficiency Virus (HIV): No Hx Sickle Cell Disease: No - INTEGUMENTARY Hx Dermatological Problems: No - MUSCULOSKELETAL/RHEUMATOLOGICAL Hx Arthritis: No Hx Falls: No Hx Fractures: No Hx Osteoporosis: No Hx Rheumatoid Arthritis: No - GASTROINTESTINAL Hx Crohn's Disease: No Hx Diverticulitis: No Hx Gall Bladder Disease: No Hx Gastritis: No Hx Pancreatitis: No - GENITOURINARY/GYNECOLOGICAL Hx Sexually Transmitted Disorders: No - PSYCHIATRIC Hx Substance Use: No - SURGICAL HISTORY Hx Appendectomy: No Hx Carotid Endarterectomy: No Hx Cholecystectomy: No Hx Coronary Artery Bypass Graft: No Hx Coronary Stent: No Hx Tonsillectomy: No - ANESTHESIA Hx Anesthesia: Yes Hx Anesthesia Reactions: No Hx Malignant Hyperthermia: No Meds Allergies/Adverse Reactions: Allergies Allergy/AdvReac Type Severity Reaction Status Date / Time No Known Allergies Allergy Verified 02/20/17 03:45 Physical Exam - Constitutional Appears: No Acute Distress - Head Exam Head Exam: ATRAUMATIC, NORMAL INSPECTION, NORMOCEPHALIC - Eye Exam Eye Exam: EOMI, Normal appearance, PERRL Pupil Exam: NORMAL ACCOMODATION, PERRL - Respiratory Exam Respiratory Exam: Clear to Auscultation Bilateral, NORMAL BREATHING PATTERN - Cardiovascular Exam Cardiovascular Exam: REGULAR RHYTHM - GI/Abdominal Exam GI & Abdominal Exam: Normal Bowel Sounds, Soft. absent: Tenderness Results - Vital Signs Recent Vital Signs: Last Vital Signs Temp 97.7 F 02/26/17 17:54 Pulse 66 02/26/17 17:54 Resp 20 02/26/17 17:54 BP 124/77 02/26/17 17:54 Pulse Ox 100 02/26/17 17:54 - Labs Result Diagrams: 02/26/17 09:18 02/26/17 09:18 Labs: Laboratory Results - last 24 hr 02/26/17 02/26/17 02/26/17 09:18 09:18 09:18 WBC 6.3 RBC 4.84 Hgb 12.5 Hct 36.6 MCV 75.7 L MCH 25.7 L MCHC 34.0 RDW 15.9 H Plt Count 284 MPV 9.0 Neut % (Auto) 45.4 L Lymph % (Auto) 44.2 H [place] % (Auto) 7.4 Eos % (Auto) 2.2 Baso % (Auto) 0.8 Neut # 2.9 Lymph # 2.8 [place] # 0.5 Eos # 0.1 Baso # 0.1 Sodium 136 Potassium 4.1 Chloride 98 Carbon Dioxide 32 H Anion Gap 10 BUN 13 Creatinine 0.6 L Est GFR ( Amer) > 60 Est GFR (Non-Af Amer) > 60 Random Glucose 94 Calcium 8.6 Total Bilirubin 0.9 AST 20 ALT 30 Alkaline Phosphatase 85 Total Protein 7.9 Albumin 4.1 Globulin 3.8 Albumin/Globulin Ratio 1.1 Lipase 98 Beta HCG, Quant < 2.39 Urine Color [place] Urine Clarity Clear Urine pH 8.0 Ur Specific [place] 1.012 Urine Protein Negative Urine Glucose (UA) Normal Urine Ketones Negative Urine Blood Negative Urine Nitrate Negative Urine Bilirubin Negative Urine Urobilinogen Normal Ur Leukocyte Esterase Trace Urine WBC (Auto) 2 Urine RBC (Auto) 1 Ur Squamous Epith Cells 1 Urine Bacteria Rare Assessment & Plan (1) Nephrolithiasis Status: Acute (2) Flank pain Assessment and Plan: 11/04 in intensity, colicky in nature pt has stone lodged in left urethropelvic junction admit pt, Iv fluids urology Eval Stent placement Status: Acute
[2017-02-27] MEDS: Ciprofloxacin 400mg/200ml D5W 400 MG/200 ML BAG IVPB SCH ×2 (00:06→12:59)
[2017-02-27] MEDS: Oxycodone/Acetaminophen 5/325 mg Tab PO PRN ×4 (00:19→22:00)
[2017-02-27] MEDS: Sodium Chloride 0.9% 1,000 ML IV SCH ×3 (07:45→17:45)
--- NOTE | 2017-02-27 08:38 | PCM.URO ---
Urology Progress Note - Objective Lab Studies: Reviewed (s/p ureteroscopy laser of stone and placement of stent plans : kub today and possible out pt management if ok with dr king) Lab Results Last 24 Hours: Laboratory Results - last 24 hr 02/26/17 02/26/17 02/26/17 09:18 09:18 09:18 WBC 6.3 RBC 4.84 Hgb 12.5 Hct 36.6 MCV 75.7 L MCH 25.7 L MCHC 34.0 RDW 15.9 H Plt Count 284 MPV 9.0 Neut % (Auto) 45.4 L Lymph % (Auto) 44.2 H [place] % (Auto) 7.4 Eos % (Auto) 2.2 Baso % (Auto) 0.8 Neut # 2.9 Lymph # 2.8 [place] # 0.5 Eos # 0.1 Baso # 0.1 Sodium 136 Potassium 4.1 Chloride 98 Carbon Dioxide 32 H Anion Gap 10 BUN 13 Creatinine 0.6 L Est GFR ( Amer) > 60 Est GFR (Non-Af Amer) > 60 Random Glucose 94 Calcium 8.6 Total Bilirubin 0.9 AST 20 ALT 30 Alkaline Phosphatase 85 Total Protein 7.9 Albumin 4.1 Globulin 3.8 Albumin/Globulin Ratio 1.1 Lipase 98 Beta HCG, Quant < 2.39 Urine Color Ten[place] Urine Clarity Clear Urine pH 8.0 Ur Specific [place] 1.012 Urine Protein Negative Urine Glucose (UA) Normal Urine Ketones Negative Urine Blood Negative Urine Nitrate Negative Urine Bilirubin Negative Urine Urobilinogen Normal Ur Leukocyte Esterase Trace Urine WBC (Auto) 2 Urine RBC (Auto) 1 Ur Squamous Epith Cells 1 Urine Bacteria Rare Intake & Output: Intake & Output 02/26/17 02/27/17 02/27/17 18:59 06:59 18:59 Intake Total 600 1250 Balance 600 1250 Weight 196 lb Intake: Intake, IV Amount 600 800 Right Antecubital 600 800 Oral 0 450 Other: Voiding Method Toilet # Voids Urine, Voided 1 3 # Bowel Movements 0 Vital Signs: Vital Signs - 24 hr 02/26/17 02/26/17 02/26/17 08:55 10:50 11:35 Temperature 98.6 F 97.6 F Pulse Rate 95 H 59 L Respiratory 18 16 Rate Blood Pressure 108/79 99/65 L O2 Sat by Pulse 99 99 98 Oximetry 02/26/17 02/26/17 02/26/17 16:25 16:30 16:45 Temperature 97.2 F L Pulse Rate 71 61 69 Respiratory 19 13 14 Rate Blood Pressure 106/47 L 102/74 113/71 O2 Sat by Pulse 100 100 99 Oximetry 02/26/17 02/26/17 02/26/17 17:00 17:15 17:54 Temperature 97.2 F L 97.7 F Pulse Rate 62 80 66 Respiratory 12 12 20 Rate Blood Pressure 112/70 119/81 124/77 O2 Sat by Pulse 97 100 100 Oximetry 02/27/17 00:00 Temperature 97.8 F Pulse Rate 71 Respiratory 20 Rate Blood Pressure 105/68 O2 Sat by Pulse 95 Oximetry
--- NOTE | 2017-02-27 09:31 | RAD ---
HISTORY: RIGHT RENAL CALCULI COMPARISON: 02/08/2014 FINDINGS: BOWEL: No evidence of bowel obstruction. Moderate retained feces. No masses or abnormal intra-abdominal calcifications. BONES: Normal. OTHER FINDINGS: None. IMPRESSION: Retained stool. No renal calculus identified.
--- NOTE | 2017-02-27 09:34 | RAD ---
PROCEDURE: Intraoperative fluoroscopy HISTORY: RIGHT RENAL CALCULI COMPARISON: Not available TECHNIQUE: Intraoperative fluoroscopy was provided for a urologic procedure. Total time of fluoroscopy was 7.4 seconds. FINDINGS: Four fluoroscopic spot films are submitted. Films are on file for review. IMPRESSION: Fluoroscopy provided.
--- NOTE | 2017-02-27 14:00 | CON ---
UROLOGY CONSULTATION SUBJECTIVE: The patient is admitted as an emergency. This is a very pleasant 41-year-old lady consulted for severe renal colic. This is a very pleasant lady I met last week. She presented with severe renal colic. We had discussed various options. She had a stone. [facility] dictated [facility]. We did a shock wave lithotripsy. Since that time, I have been in touch with the patient and she has not yet passed the stone and over the course of the weekend, she had no fever, but persistent pain. I briefly discussed various options. The pain actually got worse today. The patient then called me. We brought her to the emergency room. We repeated a CT scan. She still has hydronephrosis and the same stone. She is now here as an emergency admission to the OR immediately. PAST MEDICAL AND SURGICAL HISTORY: Otherwise unchanged. No history of an NH or CVA. 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 REVIEW OF SYSTEMS: As listed above, otherwise noncontributory. No weight loss, chest pain, or the like. She has voiding complaints and she thinks she has a cystocele. PHYSICAL EXAMINATION: GENERAL: A well-nourished female, in no apparent distress. She has moderate pain. VITAL SIGNS: Within normal limits, included in the chart. ABDOMEN: She has no real CVA tenderness. She has abdominal discomfort. Abdomen is relatively soft and nondistended. . PELVIC: She has a mild cystocele. She has no pelvic or rectal masses detected. The remainder of physical examination is otherwise unremarkable. LABORATORY DATA: Noted, see the chart. CT scan noted. DIAGNOSES: 1. Severe renal colic on the right side. 2. Hydronephrosis. 3. Persistent stone. PLAN: We discussed the options at this point, risks, benefits, and treatment alternatives. Given the fact that the shock wave lithotripsy did not work and patient is here now, I did discuss going back out to [facility]. I discussed waiting, I discussed observation. At this point, patient has been having pain ongoing. She is admitted here as an emergency to Dr. Chua. From Urology standpoint, I have discussed the options with the patient. We are going to bring her to the operating room as an emergency for a cystourethroscopy and laser lithotripsy. The plan is as follows: 1. Antibiotics. 2. Cystoscopy. 3. Ureteroscopy, laser lithotripsy, or stone basketing, then further plans will follow. I explained this to the patient in great detail and further plans will follow. Thank you for the Urology consultation. Bernard Dominguez MD
--- NOTE | 2017-02-27 16:14 | RAD ---
HISTORY: urolithiasis/ right side/ compare with previous ct COMPARISON: CT abdomen/pelvis 02/26/2017 FINDINGS: BOWEL: Multiple views of the abdomen are reviewed. Moderate retained feces. Right ureteral stent. The 5 mm calculus seen at the right UVJ on CT examination of the previous day is not evident on these plain films. No other abnormal intra-abdominal calcifications are appreciated BONES: Normal. OTHER FINDINGS: None. IMPRESSION: Right ureteral stent. Right UVJ calculus not evident on these films.
--- NOTE | 2017-02-27 23:51 | CP.PCM.PN ---
Subjective - Date & Time of Evaluation Date of Evaluation: 02/27/17 Time of Evaluation: 18:00 - Subjective Subjective: Pt seen and evaluated at bedside, pt has stent placement and nephrostomy yeserday and pt is feeling better Objective - Vital Signs/Intake and Output Vital Signs (last 24 hours): Temp Pulse Resp BP Pulse Ox 97.9 F 69 20 110/72 95 02/27/17 15:15 02/27/17 15:15 02/27/17 15:15 02/27/17 15:15 02/27/17 15:15 Intake and Output: 02/27/17 02/28/17 18:59 06:59 Intake Total 2550 1300 Balance 2550 1300 - Medications Medications: Current Medications Acetaminophen/Codeine Phosphate (Tylenol/Codeine 300 Mg/30 Mg) 1 ea PO Q6 PRN PRN Reason: Pain, moderate (4-7) Ciprofloxacin (Cipro 400mg/200ml Dsw) 400 mg in 200 mls @ 133 mls/hr IVPB Q12H [facility] Last Admin: 02/27/17 12:59 Dose: 133 mls/hr Sodium Chloride (Sodium Chloride 0.9%) 1,000 mls @ 100 mls/hr IV .Q10H [facility] Last Admin: 02/27/17 17:45 Dose: Not Given Oxycodone/Acetaminophen (Percocet 5/325 Mg Tab) 1 tab PO Q6H PRN PRN Reason: Bladder Spasm Stop: 03/01/17 15:45 Last Admin: 02/27/17 22:00 Dose: 1 tab Tamsulosin HCl (Flomax) 0.4 mg PO DAILY [facility] Last Admin: 02/27/17 09:57 Dose: 0.4 mg - Labs Labs: 02/26/17 09:18 02/26/17 09:18 - Constitutional Appears: No Acute Distress - Head Exam Head Exam: ATRAUMATIC, NORMAL INSPECTION, NORMOCEPHALIC - Eye Exam Eye Exam: EOMI, Normal appearance, PERRL Pupil Exam: NORMAL ACCOMODATION, PERRL - Respiratory Exam Respiratory Exam: Clear to Ausculation Bilateral, NORMAL BREATHING PATTERN - Cardiovascular Exam Cardiovascular Exam: REGULAR RHYTHM, +S1, +S2. absent: Murmur - GI/Abdominal Exam GI & Abdominal Exam: Soft, Normal Bowel Sounds. absent: Tenderness Assessment and Plan (1) Nephrolithiasis Status: Acute (2) Flank pain Status: Acute
[2017-02-28] MEDS: Ciprofloxacin 400mg/200ml D5W 400 MG/200 ML BAG IVPB SCH ×2 (00:34→13:26)
[2017-02-28] MEDS: Sodium Chloride 0.9% 1,000 ML IV SCH ×2 (03:02→13:37)
--- NOTE | 2017-02-28 07:11 | OP ---
PROCEDURE DATE: 02/26/2017 PREOPERATIVE DIAGNOSES: Urolithiasis, persistent kidney stone disease, severe renal colic, right kidney stone, right distal ureteral stone, hydronephrosis. POSTOPERATIVE DIAGNOSES: Urolithiasis, persistent kidney stone disease, severe renal colic, right kidney stone, right distal ureteral stone, hydronephrosis. PROCEDURE: Exam under anesthesia, cystoscopy, right ureteral dilation, right ureteroscopy, right laser lithotripsy, right stone basketing, insertion of a double-J stent with dangles. SURGEON: Bobby Dominguez M.D. ESTIMATED BLOOD LOSS: Less than 10 mL. COMPLICATIONS: There were no complications. At the termination of the procedure, the stone that is visible on the KUB is no longer visible. We were able to accomplish that we broke the stone into several small little megan pieces. See pictures that are in the chart and we were able to basket 2 larger pieces and sent these to the lab for evaluation. Based on the x-ray criteria, these looked to be calcium stones. Just one other thing, the patient was concerned about the possibility of prolapse. She may have a mild cystocele. She has no pelvic or rectal masses. The remainder of the bladder mucosa is otherwise normal and the remainder of the exam is otherwise relatively normal. INDICATIONS: See the history and physical and consultation. A very pleasant lady. Last week, I met the patient. She had renal colic. We tried an ESWL. I explained at that time the risks, benefits, and treatment alternative, the risk of failure, the percentages, etc., and the benefits of staying external. After discussing all those options with the patient, the patient was placed we did a shockwave lithotripsy and at this point, this has not worked. The patient says she has not passed a stone, but more importantly we have a repeat CAT scan and this was done because the patient was having persistent pain. If the stone is noted in similar location and after discussing the options with the patient, she is now here for the above-listed procedure. DESCRIPTION OF PROCEDURE: After obtaining informed consent, the patient was placed on the table. Routine monitors were placed. Time-out was called. We confirmed the patient. Antibiotic which was given at 12 p.m. today. A time-out was called, we confirmed the patient, the positioning, . We introduced the cystoscope via urethra without difficulty. We identified the ureteral orifice. We passed the wire up to the kidney without difficulty. We confirmed the positioning. We did multiple procedures. The entire procedure was done with a camera and also with fluoroscopic imaging. So, my assistant clinical director can assist me and I can see exactly where we are. With the wire up in the kidney, we now dilated the distal ureter in the following fashion. We entered with the short rigid ureteroscope. Through the ureteral orifice, we now passed a second wire. We had our safety wire up to the kidney, passed the second wire through the distal ureter and then we dilated the distal ureter. Once this was done, we now introduced the ureteroscope. We actually identified the stone. We actually even passed the stone all the way up to the kidney. We could see the fluoroscopic imaging. We were up at the level of the kidney with the two wires in place. We now, slowly, surely worked our way down and when we identified the stone again, we confirmed this with fluoroscopic imaging. We could see the stone very nicely as previously noted. Now, we begun our laser lithotripsy. It looks like the stone has little chips from the ESWL procedure, but there is still persistent stone, but it looked a little bit too large to basket initially; so what we did is we performed laser lithotripsy. We broke the stone into fragments. We chased some of the fragments up a little bit more proximally and reduced over the course. Once we had made it into multiple sands, there were still, two pieces that were big enough to grab out, which we did. We used the basket. We can see the entire procedure though we were only grabbing the basket and not anywhere near the ureter. We had good visualization, next pictures were taken. These were delivered through and sent to lab. At this point when we reinspected, we noted the presence of a stone as all gone. We did fluoroscopic imaging and some light stones were noted. At this point, we placed a double J-stent with dangle. Exam under anesthesia revealed a minimal cystocele. No pelvic or rectal masses were really detected. The bladder was emptied. Further evaluation is otherwise unremarkable. We left the stent with the dangles and we tucked the dangles in the vagina. Overall, the patient tolerated the procedure well without complications. Patient was brought to the recovery room in stable condition. Bernard Dominguez MD
--- NOTE | 2017-02-28 14:53 | CP.PCM.PN ---
Subjective - Date & Time of Evaluation Date of Evaluation: 02/28/17 Time of Evaluation: 14:51 - Subjective Subjective: PT SEEN. COMFORTABLE, WANTS TO GO HOME HOWEVER SHE DOES NOT WANT TO GO UNTIL STENT IS REMOVED. PER PT SHE CONTACTED DR. GENTILE AND HE IS NOT COMING TO THE HOSPITAL TODAY 2/2 WEATHER. PER HER HE WILL BE HERE TOMORROW AND REMOVE STENT THEN. AFTER PROCEDURE THE PT CAN BE D/C HOME. IVF D/C'D. PT TOLERATING PO VERY WELL. IV ROCEPHIN ORDERED. Objective - Vital Signs/Intake and Output Vital Signs (last 24 hours): Temp Pulse Resp BP Pulse Ox 98.4 F 78 20 115/76 98 02/28/17 09:19 02/28/17 09:19 02/28/17 09:19 02/28/17 09:19 02/28/17 09:19 Intake and Output: 02/28/17 02/28/17 06:59 18:59 Intake Total 1300 1000 Balance 1300 1000 - Medications Medications: Current Medications Acetaminophen/Codeine Phosphate (Tylenol/Codeine 300 Mg/30 Mg) 1 ea PO Q6 PRN PRN Reason: Pain, moderate (4-7) Sodium Chloride (Sodium Chloride 0.9%) 1,000 mls @ 100 mls/hr IV .Q10H [facility] Last Admin: 02/28/17 13:37 Dose: Not Given Oxycodone/Acetaminophen (Percocet 5/325 Mg Tab) 1 tab PO Q6H PRN PRN Reason: Bladder Spasm Stop: 03/01/17 15:45 Last Admin: 02/27/17 22:00 Dose: 1 tab Tamsulosin HCl (Flomax) 0.4 mg PO DAILY [facility] Last Admin: 02/28/17 09:45 Dose: 0.4 mg - Labs Labs: 02/26/17 09:18 02/26/17 09:18
--- NOTE | 2017-02-28 22:58 | CP.PCM.DIS ---
Provider - Provider Date of Admission: 02/26/17 10:49 Attending physician: Wagner Chua MD Time Spent in preparation of Discharge (in minutes): 45 Diagnosis - Discharge Diagnosis (1) Nephrolithiasis Status: Acute (2) Flank pain Status: Acute Hospital Course - Lab Results Lab Results: Most Recent Lab Values WBC 6.3 K/uL (4.8-10.8) 02/26/17 09:18 RBC 4.84 Mil/uL (3.80-5.20) 02/26/17 09:18 Hgb 12.5 g/dL (11.0-16.0) 02/26/17 09:18 Hct 36.6 % (34.0-47.0) 02/26/17 09:18 MCV 75.7 fL (81.0-99.0) L 02/26/17 09:18 MCH 25.7 pg (27.0-31.0) L 02/26/17 09:18 MCHC 34.0 g/dL (33.0-37.0) 02/26/17 09:18 RDW 15.9 % (11.5-14.5) H 02/26/17 09:18 Plt Count 284 K/uL (130-400) 02/26/17 09:18 MPV 9.0 fL (7.2-11.7) 02/26/17 09:18 Neut % (Auto) 45.4 % (50.0-75.0) L 02/26/17 09:18 Lymph % (Auto) 44.2 % (20.0-40.0) H 02/26/17 09:18 [place] % (Auto) 7.4 % (0.0-10.0) 02/26/17 09:18 Eos % (Auto) 2.2 % (0.0-4.0) 02/26/17 09:18 Baso % (Auto) 0.8 % (0.0-2.0) 02/26/17 09:18 Neut # 2.9 K/uL (1.8-7.0) 02/26/17 09:18 Lymph # 2.8 K/uL (1.0-4.3) 02/26/17 09:18 [place] # 0.5 K/uL (0.0-0.8) 02/26/17 09:18 Eos # 0.1 K/uL (0.0-0.7) 02/26/17 09:18 Baso # 0.1 K/uL (0.0-0.2) 02/26/17 09:18 Sodium 136 mmol/L (132-148) 02/26/17 09:18 Potassium 4.1 mmol/L (3.6-5.2) 02/26/17 09:18 Chloride 98 mmol/L (98-107) 02/26/17 09:18 Carbon Dioxide 32 mmol/L (22-30) H 02/26/17 09:18 Anion Gap 10 (10-20) 02/26/17 09:18 BUN 13 mg/dL (7-17) 02/26/17 09:18 Creatinine 0.6 mg/dL (0.7-1.2) L 02/26/17 09:18 Est GFR ( Amer) > 60 02/26/17 09:18 Est GFR (Non-Af Amer) > 60 02/26/17 09:18 POC Glucose (mg/dL) 161 mg/dL (65-110) H 02/28/17 18:26 Random Glucose 94 mg/dL (65-105) 02/26/17 09:18 Calcium 8.6 mg/dl (8.6-10.4) 02/26/17 09:18 Total Bilirubin 0.9 mg/dL (0.2-1.3) 02/26/17 09:18 AST 20 U/L (14-36) 02/26/17 09:18 ALT 30 U/L (9-52) 02/26/17 09:18 Alkaline Phosphatase 85 U/L (38-126) 02/26/17 09:18 Total Protein 7.9 g/dL (6.3-8.3) 02/26/17 09:18 Albumin 4.1 g/dL (3.5-5.0) 02/26/17 09:18 Globulin 3.8 gm/dL (2.2-3.9) 02/26/17 09:18 Albumin/Globulin Ratio 1.1 (1.0-2.1) 02/26/17 09:18 Lipase 98 U/L (23-300) 02/26/17 09:18 Beta HCG, Quant < 2.39 mIU/ML 02/26/17 09:18 Urine Color Tenisha (YELLOW) 02/26/17 09:18 Urine Clarity Clear (Clear) 02/26/17 09:18 Urine pH 8.0 (5.0-8.0) 02/26/17 09:18 Ur Specific [place] 1.012 (1.003-1.030) 02/26/17 09:18 Urine Protein Negative mg/dL (NEGATIVE) 02/26/17 09:18 Urine Glucose (UA) Normal mg/dL (Normal) 02/26/17 09:18 Urine Ketones Negative mg/dL (NEGATIVE) 02/26/17 09:18 Urine Blood Negative (NEGATIVE) 02/26/17 09:18 Urine Nitrate Negative (NEGATIVE) 02/26/17:18 Urine Bilirubin Negative (NEGATIVE) 02/26/17 09:18 Urine Urobilinogen Normal mg/dL (0.2-1.0) 02/26/17 09:18 Ur Leukocyte Esterase Trace Vincent/uL (Negative) 02/26/17 09:18 Urine WBC (Auto) 2 /hpf (0-5) 02/26/17 09:18 Urine RBC (Auto) 1 /hpf (0-3) 02/26/17 09:18 Ur Squamous Epith Cells 1 /hpf (0-5) 02/26/17 09:18 Urine Bacteria Rare (<OCC) 02/26/17 09:18 - Hospital Course Hospital Course: PT SEEN. COMFORTABLE, WANTS TO GO HOME HOWEVER SHE DOES NOT WANT TO GO UNTIL STENT IS REMOVED. PER PT SHE CONTACTED DR. DOMINGUEZ AND HE IS NOT COMING TO THE HOSPITAL TODAY 2/2 WEATHER. PER HER HE WILL BE HERE TOMORROW AND REMOVE STENT THEN. AFTER PROCEDURE THE PT CAN BE D/C HOME. IVF D/C'D. PT TOLERATING PO VERY WELL. IV ROCEPHIN ORDERED. Discharge Exam - Head Exam Head Exam: ATRAUMATIC, NORMAL INSPECTION, NORMOCEPHALIC - Eye Exam Eye Exam: EOMI, Normal appearance, PERRL Pupil Exam: NORMAL ACCOMODATION, PERRL - ENT Exam ENT Exam: Mucous Membranes Moist - Respiratory Exam Respiratory Exam: Clear to PA & Lateral, NORMAL BREATHING PATTERN - Cardiovascular Exam Cardiovascular Exam: REGULAR RHYTHM - GI/Abdominal Exam GI & Abdominal Exam: Normal Bowel Sounds Discharge Plan - Follow Up Plan Condition: STABLE Disposition: HOME/ ROUTINE Additional Instructions: FOLLOW UP WITH DR. CHUA IN THE OFFICE WITHIN 5-7 DAYS AFTER DISCHARGE---CALL THE OFFICE TOMORROW AND MAKE YOUR APPT. FOLLOW UP WITH DR. DOMINGUEZ IN THE OFFICE WITHIN 5-7 DAYS AFTER DISCHARGE---CALL THE OFFICE TOMORROW AND MAKE YOU APPT. DURING THIS VISIT DR. DOMINGUEZ WILL DISCUSS WITH YOU THE STENT DURATION AND WHEN YOU WILL HAVE IT REMOVED. CONTINUE YOUR HOME MEDICATIONS USUAL. NEW PRESCRIPTIONS INCLUDE: FOR FURTHER ORDERS OR CONCERNS, CONTACT DR. CHUA. Referrals: Wagner Chua MD [Staff Provider] - Bobby Dominguez MD [Staff Provider] - Abrli Dominguez MD [Staff Provider] -
[2017-03-01] MEDS: Acetaminophen-Codeine 300/30 mg Tab PO PRN (16:25)
--- NOTE | 2017-03-01 16:36 | CP.PCM.PN ---
Subjective - Date & Time of Evaluation Date of Evaluation: 03/01/17 Time of Evaluation: 16:36 Objective - Vital Signs/Intake and Output Vital Signs (last 24 hours): Temp Pulse Resp BP Pulse Ox 98.1 F 83 20 100/67 97 03/01/17 09:20 03/01/17 09:20 03/01/17 09:20 03/01/17 09:20 03/01/17 09:20 Intake and Output: 03/01/17 03/01/17 06:59 18:59 Intake Total 250 Balance 250 - Medications Medications: Current Medications Acetaminophen/Codeine Phosphate (Tylenol/Codeine 300 Mg/30 Mg) 1 ea PO Q6 PRN PRN Reason: Pain, moderate (4-7) Last Admin: 03/01/17 16:25 Dose: 1 ea Hydromorphone HCl (Dilaudid) 2 mg IVP STAT STA Stop: 03/01/17 16:36 Ceftriaxone Sodium 1 gm/ (Dextrose) 100 mls @ 100 mls/hr IVPB Q24H JUAN Last Admin: 03/01/17 16:28 Dose: 100 mls/hr Tamsulosin HCl (Flomax) 0.4 mg PO DAILY JUAN Last Admin: 03/01/17 10:20 Dose: 0.4 mg - Labs Labs: 02/26/17 09:18 02/26/17 09:18
--- NOTE | 2017-03-01 22:39 | CP.PCM.PN ---
Subjective - Date & Time of Evaluation Date of Evaluation: 03/01/17 Time of Evaluation: 18:30 - Subjective Subjective: Pt seen and examined, pt discharge is on hold due to recurrent flank pain, she is on medical management Objective - Vital Signs/Intake and Output Vital Signs (last 24 hours): Temp Pulse Resp BP Pulse Ox 98.1 F 83 20 100/67 97 03/01/17 09:20 03/01/17 09:20 03/01/17 09:20 03/01/17 09:20 03/01/17 09:20 - Medications Medications: Current Medications Acetaminophen/Codeine Phosphate (Tylenol/Codeine 300 Mg/30 Mg) 1 ea PO Q6 PRN PRN Reason: Pain, moderate (4-7) Last Admin: 03/01/17 16:25 Dose: 1 ea Ceftriaxone Sodium 1 gm/ (Dextrose) 100 mls @ 100 mls/hr IVPB Q24H [facility] Last Admin: 03/01/17 16:28 Dose: 100 mls/hr Tamsulosin HCl (Flomax) 0.4 mg PO DAILY [facility] Last Admin: 03/01/17 10:20 Dose: 0.4 mg - Labs Labs: 02/26/17 09:18 02/26/17 09:18 - Constitutional Appears: No Acute Distress - Head Exam Head Exam: ATRAUMATIC, NORMAL INSPECTION, NORMOCEPHALIC - Eye Exam Eye Exam: EOMI, Normal appearance, PERRL Pupil Exam: NORMAL ACCOMODATION, PERRL - Respiratory Exam Respiratory Exam: Clear to Ausculation Bilateral, NORMAL BREATHING PATTERN - Cardiovascular Exam Cardiovascular Exam: REGULAR RHYTHM, +S1, +S2. absent: Murmur - GI/Abdominal Exam GI & Abdominal Exam: Soft, Normal Bowel Sounds. absent: Tenderness Assessment and Plan (1) Nephrolithiasis Status: Acute (2) Flank pain Status: Acute
[2017-03-02] MEDS: Acetaminophen-Codeine 300/30 mg Tab PO PRN (01:46)
[2017-03-02 09:03] VITALS: BP 98/67; PULSE 78; TEMP 98; O2SAT 96
--- NOTE | 2017-03-02 21:54 | CP.PCM.DIS ---
Provider - Provider Date of Admission: 02/26/17 10:49 Attending physician: Wagner Chua MD Time Spent in preparation of Discharge (in minutes): 34 Diagnosis - Discharge Diagnosis (1) Nephrolithiasis Status: Acute (2) Flank pain Status: Acute Hospital Course - Lab Results Lab Results: Most Recent Lab Values WBC 6.3 K/uL (4.8-10.8) 02/26/17 09:18 RBC 4.84 Mil/uL (3.80-5.20) 02/26/17 09:18 Hgb 12.5 g/dL (11.0-16.0) 02/26/17 09:18 Hct 36.6 % (34.0-47.0) 02/26/17 09:18 MCV 75.7 fL (81.0-99.0) L 02/26/17 09:18 MCH 25.7 pg (27.0-31.0) L 02/26/17 09:18 MCHC 34.0 g/dL (33.0-37.0) 02/26/17 09:18 RDW 15.9 % (11.5-14.5) H 02/26/17 09:18 Plt Count 284 K/uL (130-400) 02/26/17 09:18 MPV 9.0 fL (7.2-11.7) 02/26/17 09:18 Neut % (Auto) 45.4 % (50.0-75.0) L 02/26/17 09:18 Lymph % (Auto) 44.2 % (20.0-40.0) H 02/26/17 09:18 [place] % (Auto) 7.4 % (0.0-10.0) 02/26/17 09:18 Eos % (Auto) 2.2 % (0.0-4.0) 02/26/17 09:18 Baso % (Auto) 0.8 % (0.0-2.0) 02/26/17 09:18 Neut # 2.9 K/uL (1.8-7.0) 02/26/17 09:18 Lymph # 2.8 K/uL (1.0-4.3) 02/26/17 09:18 [place] # 0.5 K/uL (0.0-0.8) 02/26/17 09:18 Eos # 0.1 K/uL (0.0-0.7) 02/26/17 09:18 Baso # 0.1 K/uL (0.0-0.2) 02/26/17 09:18 Sodium 136 mmol/L (132-148) 02/26/17 09:18 Potassium 4.1 mmol/L (3.6-5.2) 02/26/17 09:18 Chloride 98 mmol/L (98-107) 02/26/17 09:18 Carbon Dioxide 32 mmol/L (22-30) H 02/26/17 09:18 Anion Gap 10 (10-20) 02/26/17 09:18 BUN 13 mg/dL (7-17) 02/26/17 09:18 Creatinine 0.6 mg/dL (0.7-1.2) L 02/26/17 09:18 Est GFR ( Amer) > 60 02/26/17 09:18 Est GFR (Non-Af Amer) > 60 02/26/17 09:18 POC Glucose (mg/dL) 161 mg/dL (65-110) H 02/28/17 18:26 Random Glucose 94 mg/dL (65-105) 02/26/17 09:18 Calcium 8.6 mg/dl (8.6-10.4) 02/26/17 09:18 Total Bilirubin 0.9 mg/dL (0.2-1.3) 02/26/17 09:18 AST 20 U/L (14-36) 02/26/17 09:18 ALT 30 U/L (9-52) 02/26/17 09:18 Alkaline Phosphatase 85 U/L (38-126) 02/26/17 09:18 Total Protein 7.9 g/dL (6.3-8.3) 02/26/17 09:18 Albumin 4.1 g/dL (3.5-5.0) 02/26/17 09:18 Globulin 3.8 gm/dL (2.2-3.9) 02/26/17 09:18 Albumin/Globulin Ratio 1.1 (1.0-2.1) 02/26/17 09:18 Lipase 98 U/L (23-300) 02/26/17 09:18 Beta HCG, Quant < 2.39 mIU/ML 02/26/17 09:18 Urine Color [place] (YELLOW) 02/26/17 09:18 Urine Clarity Clear (Clear) 02/26/17 09:18 Urine pH 8.0 (5.0-8.0) 02/26/17 09:18 Ur Specific [place] 1.012 (1.003-1.030) 02/26/17 09:18 Urine Protein Negative mg/dL (NEGATIVE) 02/26/17 09:18 Urine Glucose (UA) Normal mg/dL (Normal) 02/26/17 09:18 Urine Ketones Negative mg/dL (NEGATIVE) 02/26/17 09:18 Urine Blood Negative (NEGATIVE) 02/26/17:18 Urine Nitrate Negative (NEGATIVE) 02/26/17:18 Urine Bilirubin Negative (NEGATIVE) 02/26/17 09:18 Urine Urobilinogen Normal mg/dL (0.2-1.0) 02/26/17 09:18 Ur Leukocyte Esterase Trace [place]/uL (Negative) 02/26/17 09:18 Urine WBC (Auto) 2 /hpf (0-5) 02/26/17 09:18 Urine RBC (Auto) 1 /hpf (0-3) 02/26/17 09:18 Ur Squamous Epith Cells 1 /hpf (0-5) 02/26/17 09:18 Urine Bacteria Rare (<OCC) 02/26/17 09:18 Discharge Exam - Head Exam Head Exam: ATRAUMATIC, NORMAL INSPECTION, NORMOCEPHALIC Discharge Plan - Discharge Medications Prescriptions: RX: Tamsulosin [Flomax] 0.4 mg PO DAILY #30 cap Acetaminophen with Codeine [Tylenol with Codeine #3 Tablet] 1 each PO Q6 #20 tablet - Follow Up Plan Condition: STABLE Disposition: HOME/ ROUTINE Instructions: Acetaminophen/Codeine (By mouth), Tamsulosin (By mouth), Kidney Stones (DC) Additional Instructions: FOLLOW UP WITH DR. CHUA IN THE OFFICE WITHIN 5-7 DAYS AFTER DISCHARGE---CALL THE OFFICE TOMORROW AND MAKE YOUR APPT. FOLLOW UP WITH DR. DOMINGUEZ IN THE OFFICE WITHIN 5-7 DAYS AFTER DISCHARGE---CALL THE OFFICE TOMORROW AND MAKE YOU APPT. CONTINUE YOUR HOME MEDICATIONS USUAL. PRESCRIPTION FOR FLOMAX REFILL SENT TO YOUR PHARMACY--[facility] TOMORROW AND TAKE EXACTLY PRESCRIBED. FOR FURTHER ORDERS OR CONCERNS, CONTACT DR. CHUA. Referrals: Wagner Chua MD [Staff Provider] - Bobby Dominguez MD [Staff Provider] - Abril Dominguez MD [Staff Provider] -
== END 2017-03-02 10:30 | disposition home or self-care (01) | DRG 669 ==
LOC: C.ER 08:35 → C.9E 10:49 → C.3T 11:28
PROVIDERS: ADMIT Internal Medicine; ATTEND Internal Medicine
PROC: 0T768DZ Dilation of Right Ureter with Intraluminal Device, Via Natural or Artificial Opening Endoscopic (ICD-10-PCS; 2017-02-26)
PROC: 0TC68ZZ Extirpation of Matter from Right Ureter, Via Natural or Artificial Opening Endoscopic (ICD-10-PCS; principal; 2017-02-26 14:45)
DX: N13.2 Hydronephrosis with renal and ureteral calculous obstruction (principal)

== ENCOUNTER 2017-05-26 10:07 | Emergency (ER) | payer OTHER ==
[2017-05-26 10:08] VITALS: BMI 30.9
[2017-05-26 10:15] VITALS: BP 149/81; PULSE 85; RESP 20; TEMP 98.3; O2SAT 100
--- NOTE | 2017-05-26 10:29 | C.PDOC ---
History Of Present Illness 42 year old female presents to the emergency department experiencing flu-like symptoms. Patient reports that she experienced cough and congestion and that she took Tylenol for her symptoms. Patient reports that she last experienced febrile symptoms yesterday, and that she was swabbed for flu testing prior to arrival which resulted positive. Patient denies asthma, nausea, and vomiting. HPI: Influenza Time Seen by Provider: 05/26/17 10:20 Chief Complaint: Flu-like Symptoms History Per: Patient Onset/Duration Of Symptoms: Days (1) Symptoms include: fever, cough, nasal congestion. denies: vomiting, other ( nausea) Past Medical History Reviewed: Historical Data, Nursing Documentation, Vital Signs Vital Signs: Last Vital Signs Temp 98.3 F 05/26/17 10:11 Pulse 85 05/26/17 10:11 Resp 20 05/26/17 10:11 BP 149/81 05/26/17 10:11 Pulse Ox 100 05/26/17 10:11 - Medical History PMH: Back Problems, Kidney Stones, Chronic Kidney Disease Denies: Alzheimer's Disease, Anemia, Anxiety, Arthritis, Asthma, Atrial Fibrillation, Bipolar Disorder, Bronchitis, Cardia Arrhythmia, CHF, COPD, Crohn' s Disease, Dementia, Depression, Diverticulitis, Emphysema, Fractures, Gastritis , Gall Bladder Disease, HIV, HTN, Hypercholesterolemia, Hyperthyroidism, Hypothyroidism, Migraine, Mitral Valve Prolapse, Multiple Sclerosis, Osteoporosis, Pancreatitis, Paranoia, Parkinson's Disease, Peripheral Edema, Pneumonia, Post Traumatic Stress Disorder, Pulmonary Embolism, Rheumatoid Arthritis, Schizophrenia, Seizures, Sickle Cell Disease, Sexually Transmitted Disease, Sleep Apnea, TIA Surgical History: Denies: Appendectomy, CABG, Carotid Endarterectomy, Cholecystectomy, Coronary Stent, Pacemaker, Tonsillectomy - [facility] Procedures CONTR CEREBR ARTERIOGRAM (01/24/04) DILATION OF RIGHT URETER WITH INTRALUMINAL DEVICE, ENDO (02/26/17) EXTIRPATION OF MATTER FROM RIGHT URETER, ENDO (02/26/17) TETANUS TOXOID ADMINIST (12/06/12) Family History: States: No Known Family Hx - Social History Hx Tobacco Use: No Hx Alcohol Use: No Hx Substance Use: No - Immunization History Hx Tetanus Toxoid Vaccination: Yes (11/2012) Hx Influenza Vaccination: No Hx Pneumococcal Vaccination: No Review Of Systems Except As Marked, All Systems Reviewed And Found Negative. Constitutional: Positive for: Fever ENT: Positive for: Nose Congestion Respiratory: Positive for: Cough Gastrointestinal: Negative for: Nausea, Vomiting Physical Exam - Physical Exam Appears: Well, Non-toxic Skin: Normal Color Head: Atraumatic, Normacephalic Eye(s): bilateral: Normal Inspection Ear(s): Bilateral: Normal Nose: Discharge (rhinorrhea), Other (sinus congestion) Neck: Normal, Supple Chest: Symmetrical Cardiovascular: Rhythm Regular Respiratory: Normal Breath Sounds Gastrointestinal/Abdominal: Normal Exam Back: Normal Inspection Neurological/Psych: Oriented x3, Normal Speech, Normal Cognition - ECG O2 Sat by Pulse Oximetry: 100 (RA) Pulse Ox Interpretation: Normal - Progress ED Course And Treament: Patient treated with Tamiflu 75mg PO in ED, given prescription for Tamiflu as well and advised to take it PO for the next five days. Disposition Counseled Patient/Family Regarding: Diagnosis, Need For Followup, Rx Given - Disposition Referrals: YOUR,PMD [Other] Disposition: HOME/ ROUTINE Disposition Time: 10:28 Condition: IMPROVED Prescriptions: Oseltamivir [Tamiflu] 75 mg PO BID #9 cap Instructions: Flu, Adult (DC) Forms: [employer] (Greek), Work Excuse - Clinical Impression Clinical Impression: Influenza - Scribe Statement The provider has reviewed the documentation as recorded by the Scribe (Hayden Guerrero) Provider Attestation: All medical record entries made by the Scribe were at my direction and personally dictated by me. I have reviewed the chart and agree that the record accurately reflects my personal performance of the history, physical exam, medical decision making, and the department course for this patient. I have also personally directed, reviewed, and agree with the discharge instructions and disposition.
== END 2017-05-26 10:38 | disposition home or self-care (01) ==
LOC: C.ER 10:07
DX: J11.1 Influenza due to unidentified influenza virus with other respiratory manifestations (principal)

== ENCOUNTER 2017-06-21 14:17 | Emergency (ER) | payer OTHER ==
[2017-06-21 14:17] VITALS: BMI 30.9
[2017-06-21 14:40] VITALS: TEMP 98.6; O2SAT 100
[2017-06-21] MEDS ORDERED: Bacitracin 500 Units/gm Oint Foilpak UD ONE (15:24)
--- NOTE | 2017-06-21 15:41 | C.PDOC ---
History Of Present Illness 42-year-old female, presents to the emergency department with complaints of deep abrasion above top lip and abrasions to right knee s/p mechanical fall. Patient states she was walking, tripped and fell forward sustaining injuries. Currently complaining of headache and loose tooth. Denies nausea/vomiting, numbness/weakness. Chief Complaint (Nursing): Abnormal Skin Integrity History Per: Patient History/Exam Limitations: no limitations Onset/Duration Of Symptoms: Other (prior to arrival) Past Medical History Reviewed: Historical Data, Nursing Documentation, Vital Signs Vital Signs: Last Vital Signs Temp 98.6 F 06/21/17 17:04 Pulse 84 06/21/17 17:04 Resp 18 06/21/17 17:04 BP 124/60 06/21/17 17:04 Pulse Ox 100 06/21/17 21:04 - Medical History PMH: Back Problems, Kidney Stones, Chronic Kidney Disease - [facility] Procedures CONTR CEREBR ARTERIOGRAM (01/24/04) DILATION OF RIGHT URETER WITH INTRALUMINAL DEVICE, ENDO (02/26/17) EXTIRPATION OF MATTER FROM RIGHT URETER, ENDO (02/26/17) TETANUS TOXOID ADMINIST (12/06/12) Family History: States: No Known Family Hx - Social History Hx Tobacco Use: No Hx Alcohol Use: No Hx Substance Use: No - Immunization History Hx Tetanus Toxoid Vaccination: Yes (2014) Hx Influenza Vaccination: No Hx Pneumococcal Vaccination: No Review Of Systems Musculoskeletal: Positive for: Other (r knee pain). Negative for: Neck Pain, Back Pain Neurological: Positive for: Headache, Dizziness. Negative for: Weakness, Numbness Physical Exam - Physical Exam Appears: Non-toxic, No Acute Distress Skin: Warm, Dry, No Rash Head: Normacephalic Eye(s): bilateral: Normal Inspection, PERRL, EOMI Nose: Normal Oral Mucosa: Moist Lips: Abrasion (deep abrasion, 0.5cm to philtrum, does not cross octavio border) Teeth: Other (right upper central incisor mildly loose, no bleeding) Neck: Normal ROM Chest: Symmetrical Cardiovascular: Rhythm Regular, No Murmur Respiratory: Normal Breath Sounds, No Decreased Breath Sounds, No Accessory Muscle Use Extremity: Normal ROM, No Deformity, No Swelling, Other (superficial abrasion, right knee) Neurological/Psych: Oriented x3, Normal Speech ED Course And Treatment O2 Sat by Pulse Oximetry: 100 (RA) Pulse Ox Interpretation: Normal - CT Scan/US CT Head Other Rad Studies (CT/US): Read By Radiologist, Radiology Report Reviewed CT/US Interpretation: Accession No. : [id number]. Patient Name / ID : CHRISTIANO PAINTER / [id number]. Exam Date : 06/21/2017 16:00:37 ( Approved ). Study Comment : Sex / Age : F / 42Y. Creator : Tere Roy MD. Dictator : Tere Roy MD. Bending Machine Set Up Operator : Policy Advisor : Tere Roy MD. Approver2 : Report Date : 06/21/2017 16:32:30. My Comment : . PROCEDURE: CT HEAD WITHOUT CONTRAST. HISTORY: Fall, UCG negative. COMPARISON: 04/20/2016. TECHNIQUE: Axial computed tomography images were obtained through the head/brain without intravenous contrast. Radiation dose: Total exam DLP = 836.18 mGy-cm. This CT exam was performed using one or more of the following dose reduction techniques: Automated exposure control, adjustment of the mA and/or kV according to patient size, and/or use of iterative reconstruction technique. FINDINGS: HEMORRHAGE: No intracranial hemorrhage. BRAIN: Holt-white matter differentiation is preserved. There is no mass, mass effect or abnormal extra-axial fluid collection. There is no territorial infarction. VENTRICLES: The ventricles are normal in size, shape and configuration. CALVARIUM: There is no calvarial fracture or extracranial soft tissue swelling. PARANASAL SINUSES: Predominantly clear. MASTOID AIR CELLS: Predominantly clear. OTHER FINDINGS: None. IMPRESSION: No acute intracranial abnormality. Progress Note: Pt is UTD with TD immunization (3 yrs ago), Tylenol po given, wound were cleaned with NS, Bacitracin applied to abrasions. CT head negative. Patient was instructed to avoid biting with her frontal teeth and to f/u with dentist MANUELA. Medical Decision Making Medical Decision Making: Plan: * CT head * reassess and disposition Disposition - Disposition Referrals: Wagner Chua MD [Staff Provider] - Disposition: HOME/ ROUTINE Disposition Time: 17:11 Condition: STABLE Additional Instructions: Follow up with PMD and Dentist within 1-2 days. Return to ED if feel worse. Prescriptions: Bacitracin OINT 1 applic TP TID #45 g Instructions: Skin Abrasions, Head Injury (ED) Forms: [employer] (Burkinan), Work Excuse - Clinical Impression Clinical Impression: Abrasions of multiple sites, Injury of tooth, Minor head injury - Scribe Statement The provider has reviewed the documentation as recorded by the Scribe (Thiago Scherer) All medical record entries made by the Scribe were at my direction and personally dictated by me. I have reviewed the chart and agree that the record accurately reflects my personal performance of the history, physical exam, medical decision making, and the department course for this patient. I have also personally directed, reviewed, and agree with the discharge instructions and disposition.
--- NOTE | 2017-06-21 16:34 | CT ---
PROCEDURE: CT HEAD WITHOUT CONTRAST. HISTORY: Fall, UCG negative COMPARISON: 04/20/2016. TECHNIQUE: Axial computed tomography images were obtained through the head/brain without intravenous contrast. Radiation dose: Total exam DLP = 836.18 mGy-cm. This CT exam was performed using one or more of the following dose reduction techniques: Automated exposure control, adjustment of the mA and/or kV according to patient size, and/or use of iterative reconstruction technique. FINDINGS: HEMORRHAGE: No intracranial hemorrhage. BRAIN: Holt-white matter differentiation is preserved. There is no mass, mass effect or abnormal extra-axial fluid collection. There is no territorial infarction. VENTRICLES: The ventricles are normal in size, shape and configuration. CALVARIUM: There is no calvarial fracture or extracranial soft tissue swelling. PARANASAL SINUSES: Predominantly clear. MASTOID AIR CELLS: Predominantly clear. OTHER FINDINGS: None. IMPRESSION: No acute intracranial abnormality.
[2017-06-21 17:05] VITALS: BP 124/60; PULSE 84; RESP 18
== END 2017-06-21 18:00 | disposition home or self-care (01) ==
LOC: C.ER 14:17
DX: S00.511A Abrasion of lip, initial encounter (principal); S80.211A Abrasion, right knee, initial encounter; S09.93XA Unspecified injury of face, initial encounter; W01.0XXA Fall on same level from slipping, tripping and stumbling without subsequent striking against object, initial encounter; Y93.01 Activity, walking, marching and hiking

== ENCOUNTER 2017-11-24 22:14 | Emergency (ER) | payer OTHER ==
[2017-11-24 22:17] VITALS: BMI 30.9
[2017-11-24 22:21] VITALS: RESP 20; TEMP 98.8; O2SAT 100
[2017-11-24 23:07] LABS: BASO % 0.5 % (0.0-2.0); EOS # 0.1 K/uL (0.0-0.7); EOS % 1.6 % (0.0-4.0); HEMOGLOBIN 11.5 g/dL (11.0-16.0); LYMPH # 3.5 K/uL (1.0-4.3); LYMPH % 43.1 % (20.0-40.0); MEAN CELL VOLUME 75.6 fL (81.0-99.0); MEAN CORPUSCULAR HEMOGLOBIN 25.6 pg (27.0-31.0); MEAN CORPUSCULAR HGB CONC 33.9 g/dL (33.0-37.0); MEAN PLATELET VOLUME 9.4 fL (7.2-11.7); MONO # 0.7 K/uL (0.0-0.8); NEUT # 3.7 K/uL (1.8-7.0); NEUT % 45.8 % (50.0-75.0); RBC 4.49 Mil/uL (3.80-5.20); RED CELL DISTRIBUTION WIDTH 16.3 % (11.5-14.5); WHITE BLOOD COUNT 8.1 K/uL (4.8-10.8)
[2017-11-24 23:20] LABS: ALB/GLOB RATIO 1.2 (1.0-2.1); ALBUMIN 4.1 g/dL (3.5-5.0); ALT/SGPT 23 U/L (9-52); AST/SGOT 16 U/L (14-36); BLOOD UREA NITROGEN 11 mg/dL (7-17); CALCIUM 9.3 mg/dl (8.6-10.4); GFR NON-AFRICAN AMERICAN > 60
--- NOTE | 2017-11-24 23:55 | C.PDOC ---
History Of Present Illness 42 year old female presents to the ED c/o achy pain to her right breast consistent with her cystic breast disease. Patient states this symptoms are unchanged from prior last week. Patient is also c/o left lateral hip pain. Patient reports she occasionally taken Tylenol. Patient denies fever, chills, nausea, vomit, injury, fall, trauma, weakness, numbness. Time Seen by Provider: 11/24/17 22:49 Chief Complaint (Nursing): Hip Pain History Per: Patient History/Exam Limitations: no limitations Onset/Duration Of Symptoms: Days Current Symptoms Are (Timing): Still Present Recent travel outside of the [place]: No Additional History Per: Patient - Hip Description Of Injury: Other Past Medical History Reviewed: Historical Data, Nursing Documentation, Vital Signs Vital Signs: Last Vital Signs Temp 98.8 F 11/24/17 22:20 Pulse 80 11/24/17 22:20 Resp 20 11/24/17 22:20 BP 124/81 11/24/17 22:20 Pulse Ox 100 11/24/17 22:20 - Medical History PMH: Back Problems, Kidney Stones, Chronic Kidney Disease Denies: Alzheimer's Disease, Anemia, Anxiety, Arthritis, Asthma, Atrial Fibrillation, Bipolar Disorder, Bronchitis, Cardia Arrhythmia, CHF, COPD, Crohn's Disease, Dementia, Depression, Diverticulitis, Emphysema, Fractures, Gastritis, Gall Bladder Disease, HIV, HTN, Hypercholesterolemia, Hyperthyroidism, Hypothyroidism, Migraine, Mitral Valve Prolapse, Multiple Sclerosis, Osteoporosis, Pancreatitis, Paranoia, Parkinson's Disease, Peripheral Edema, Pneumonia, Post Traumatic Stress Disorder, Pulmonary Embolism, Rheumatoid Arthritis, Schizophrenia, Seizures, Sickle Cell Disease, Sexually Transmitted Disease, Sleep Apnea, TIA Surgical History: No Surg Hx Denies: Appendectomy, CABG, Carotid Endarterectomy, Cholecystectomy, Coronary Stent, Pacemaker, Tonsillectomy - [facility] Procedures CONTR CEREBR ARTERIOGRAM (01/24/04) DILATION OF RIGHT URETER WITH INTRALUMINAL DEVICE, ENDO (02/26/17) EXTIRPATION OF MATTER FROM RIGHT URETER, ENDO (02/26/17) TETANUS TOXOID ADMINIST (12/06/12) Family History: States: Unknown Family Hx - Social History Hx Tobacco Use: No Hx Alcohol Use: No Hx Substance Use: No - Immunization History Hx Tetanus Toxoid Vaccination: Yes (2014) Hx Influenza Vaccination: No Hx Pneumococcal Vaccination: No Review Of Systems Constitutional: Negative for: Fever, Chills Cardiovascular: Negative for: Chest Pain Respiratory: Negative for: Cough Gastrointestinal: Negative for: Nausea, Vomiting, Abdominal Pain Musculoskeletal: Positive for: Leg Pain Skin: Negative for: Rash Neurological: Negative for: Weakness, Numbness, Headache Physical Exam - Physical Exam Appears: Non-toxic, No Acute Distress Skin: Normal Color, Warm, Dry Head: Atraumatic, Normacephalic Eye(s): bilateral: Normal Inspection Neck: Normal ROM, Supple Chest: Symmetrical, No Tenderness Cardiovascular: Rhythm Regular Respiratory: Normal Breath Sounds, No Rales, No Rhonchi, No Wheezing Gastrointestinal/Abdominal: Soft, No Tenderness, No Guarding, No Rebound Extremity: Normal ROM (left hip), Tenderness (left lateral to the quadriceps insetion at the superior anterior iliac crest), No Swelling Neurological/Psych: Oriented x3, Normal Speech, Normal Cognition Gait: Steady ED Course And Treatment - Laboratory Results Result Diagrams: 11/24/17 23:02 11/24/17 23:02 O2 Sat by Pulse Oximetry: 100 (ON RA) Pulse Ox Interpretation: Normal - Other Rad L hip/pelvis X-Ray: Interpreted by Me (neg) Medical Decision Making Medical Decision Making: L lateral hip area tender, muscular, no hip joint involved normal L hip film breast tenderness h/o cystic breast tenderness not improved with low-dose tylenol improved with Motrin opt f/u. Disposition Doctor Will See Patient In The: Office Counseled Patient/Family Regarding: Studies Performed, Diagnosis - Disposition Referrals: Wagner Chua MD [Primary Care Provider] - Disposition: HOME/ ROUTINE Disposition Time: 23:55 Condition: GOOD Additional Instructions: continue motrin 600 mg every 6 hours as needed and ice packs for your hip and breast discomforts Instructions: Mastalgia, Hip Pointer (DC) Forms: happn (Argentine) - Clinical Impression Clinical Impression: Hip pain, Contusion of hip, Breast tenderness in female - Scribe Statement The provider has reviewed the documentation as recorded by the Scribe Bernard Barnett All medical record entries made by the Scribe were at my direction and personally dictated by me. I have reviewed the chart and agree that the record accurately reflects my personal performance of the history, physical exam, medical decision making, and the department course for this patient. I have also personally directed, reviewed, and agree with the discharge instructions and disposition.
[2017-11-25 00:01] LABS: HCG,QUALITATIVE URINE NEGATIVE (NEGATIVE)
[2017-11-25 00:02] LABS: SQUAMOUS EPITHIAL < 1 /hpf (0-5); URINE BACTERIA RARE (<OCC); URINE BILIRUBIN NEGATIVE (NEGATIVE); URINE BLOOD NEGATIVE (NEGATIVE); URINE CLARITY Clear (Clear); URINE COLOR Straw (YELLOW); URINE GLUCOSE (UA) NORMAL (Normal); URINE LEUKOCYTE ESTERASE TRACE Leu/uL (Negative); URINE PROTEIN NEGATIVE (NEGATIVE); URINE UROBILINOGEN NORMAL mg/dL (0.2-1.0)
[2017-11-25 00:38] VITALS: BP 136/86; PULSE 88
--- NOTE | 2017-11-25 12:51 | RAD ---
PROCEDURE: Left Hip X-ray Radiographs. HISTORY: L hip pain x 1 week, no trauma COMPARISON: None. FINDINGS: BONES: Bone alignment and mineralization are normal. There is no acute displaced fracture or bone destruction. JOINTS: The joint spaces are preserved. SOFT TISSUES: Normal. OTHER FINDINGS: None. IMPRESSION: No acute fracture or dislocation. No significant degenerative osteoarthrosis.
== END 2017-11-25 00:38 | disposition home or self-care (01) ==
LOC: C.ER 22:14 → SUPCPDRO 22:14 → C.ER 11-25 00:38
DX: S70.02XA Contusion of left hip, initial encounter (principal); X58.XXXA Exposure to other specified factors, initial encounter; N64.4 Mastodynia; M25.552 Pain in left hip

== ENCOUNTER 2018-03-13 07:57 | Outpatient (CLI) | payer OTHER | END 2018-03-13 07:58 | disposition home or self-care (01) | LOC: C.MAMMO 07:57 | DX: Z12.31 Encounter for screening mammogram for malignant neoplasm of breast (principal) ==

== ENCOUNTER 2018-03-13 08:06 | Outpatient (CLI) | payer OTHER | END 2018-03-13 08:07 | disposition home or self-care (01) | LOC: C.USIC 08:06 | DX: N20.9 Urinary calculus, unspecified (principal) ==

== ENCOUNTER 2018-06-04 07:29 | Emergency (ER) | payer OTHER ==
[2018-06-04 07:29] VITALS: BMI 30.9
[2018-06-04 07:33] VITALS: O2SAT 100
--- NOTE | 2018-06-04 07:55 | C.PDOC ---
History Of Present Illness 43 y/o female,w/PMhx of kidney stones, presents to the ER complaining of bilateral lower back pain which has been present for the past 4 days. Patient states that the pain is worse in the left side. Patient reports that the pain is worse with movement. She notes that there is no radiation. She states that she has been taking Advil 600 mg for several days without improvement. Denies having fever,chills, nausea , and vomiting. denies saddle anesthesia. and blader and bowel dysfunction. Time Seen by Provider: 06/04/18 07:51 Chief Complaint (Nursing): Back Pain History Per: Patient History/Exam Limitations: no limitations Onset/Duration Of Symptoms: Days Current Symptoms Are (Timing): Still Present Severity: Moderate Past Medical History Reviewed: Historical Data, Nursing Documentation, Vital Signs Vital Signs: Last Vital Signs Temp 98.5 F 06/04/18 07:32 Pulse 72 06/04/18 07:32 Resp 18 06/04/18 07:32 BP 108/73 06/04/18 07:32 Pulse Ox 100 06/04/18 07:32 - Medical History PMH: Back Problems, Kidney Stones - [facility]. Procedures CONTR CEREBR ARTERIOGRAM (01/24/04) DILATION OF RIGHT URETER WITH INTRALUMINAL DEVICE, ENDO (02/26/17) EXTIRPATION OF MATTER FROM RIGHT URETER, ENDO (02/26/17) TETANUS TOXOID ADMINIST (12/06/12) Family History: States: No Known Family Hx - Social History Hx Tobacco Use: No Hx Alcohol Use: No Hx Substance Use: No - Immunization History Hx Tetanus Toxoid Vaccination: Yes (2014) Hx Influenza Vaccination: No Hx Pneumococcal Vaccination: No Review Of Systems Constitutional: Negative for: Fever, Chills Gastrointestinal: Negative for: Nausea, Abdominal Pain Genitourinary: Negative for: Dysuria, Incontinence, Hematuria Musculoskeletal: Positive for: Back Pain Skin: Negative for: Rash Neurological: Negative for: Weakness, Numbness Physical Exam - Physical Exam Appears: Other (uncomfortable) Skin: Warm, Dry Head: Atraumatic, Normacephalic Eye(s): bilateral: Normal Inspection Neck: Supple Chest: Symmetrical Cardiovascular: Rhythm Regular Respiratory: Normal Breath Sounds, No Rales, No Rhonchi, No Wheezing Gastrointestinal/Abdominal: Normal Exam, Soft, No Tenderness, No Guarding, No Rebound Back: No Vertebral Tenderness, Paraspinal Tenderness (bilateral lateral lumbar tenderness( L>R)), Straight Leg Raising (bilateral straight leg raise) Neurological/Psych: Oriented x3, Normal Speech, Normal Motor, Normal Sensation ED Course And Treatment O2 Sat by Pulse Oximetry: 100 (RA) Pulse Ox Interpretation: Normal Medical Decision Making Medical Decision Making: pt with lower back pain, with hx of kidney stones. pt reports renal ultrasound last week showing bilateral stones. Plan: --Toradol IM --Lidoderm Patch --Urinalysis --Urine Culture [id number] Dominguez; sts both stones were in kidneys, not ureters, last week. will get abx xray with obliques/. 1216 ptfeeling better better, no kidney stones seen on xray. will d/c with muscle relaxant. Disposition Counseled Patient/Family Regarding: Studies Performed, Diagnosis, Need For Followup, Rx Given - Disposition Referrals: Wagner Chua MD [Staff Provider] - Disposition: HOME/ ROUTINE Disposition Time: 12:17 Condition: IMPROVED Additional Instructions: Take patches off in 12 hours Warm compresses to lower back Take Naproxen and muscle relaxant as prescribed- no driving or working Follow up with Dr Magaña Use miralax as directed. Prescriptions: Cyclobenzaprine [Cyclobenzaprine HCl] 10 mg PO Q8 #9 tab Naproxen 500 mg PO BID #20 tab Polyethylene Glycol 3350 [Miralax] 17 gm PO DAILY #1 bottle Instructions: Lumbar Muscle Strain (DC) Forms: General Discharge Instructions, [facility] (Sinhala), Work Excuse - Clinical Impression Clinical Impression: Lumbar sprain - PA / SORTER LAUNDRY ARTICLES / Resident Statement MD/DO has reviewed & agrees with the documentation as recorded. - Scribe Statement The provider has reviewed the documentation as recorded by the Alexa Otero Provider Attestation All medical record entries made by the Rylanibe were at my direction and personally dictated by me. I have reviewed the chart and agree that the record accurately reflects my personal performance of the history, physical exam, medical decision making, and the department course for this patient. I have also personally directed, reviewed, and agree with the discharge instructions and disposition.
[2018-06-04] MEDS ORDERED: Lidocaine 5% Patch TD STA (08:33)
[2018-06-04] MEDS ORDERED: Lidocaine 5% Patch TD ONE (08:59)
[2018-06-04 09:30] LABS: SQUAMOUS EPITHIAL 3 /hpf (0-5); URINE BACTERIA RARE (<OCC); URINE BILIRUBIN NEGATIVE (NEGATIVE); URINE BLOOD NEGATIVE (NEGATIVE); URINE CLARITY Hazy (Clear); URINE COLOR Yellow (YELLOW); URINE GLUCOSE (UA) NORMAL (Normal); URINE LEUKOCYTE ESTERASE NEG Leu/uL (Negative); URINE PROTEIN NEGATIVE (NEGATIVE); URINE UROBILINOGEN NORMAL mg/dL (0.2-1.0)
[2018-06-04 09:33] LABS: URINE CALCIUM OXALATE CRYSTALS MOD /hpf (<OCC)
--- NOTE | 2018-06-04 11:04 | RAD ---
Date of service: 06/04/2018 HISTORY: eval for kidney stones COMPARISON: None available. TECHNIQUE: 1 view obtained. FINDINGS: BOWEL: Normal. No obstruction. No free air. BONES: Normal. OTHER FINDINGS: None. IMPRESSION: No intra-abdominal calcification identified.
[2018-06-04 12:47] VITALS: BP 98/61; PULSE 70; RESP 20; TEMP 97.8
== END 2018-06-04 12:44 | disposition home or self-care (01) ==
LOC: C.ER 07:29
DX: S33.5XXA Sprain of ligaments of lumbar spine, initial encounter (principal); X58.XXXA Exposure to other specified factors, initial encounter
CPT/HCPCS: 74019; 81001; 81025; 87086; 96372; 99284; J1885